=== PATIENT | female | born 1940 | race Caucasian/White ===

== ENCOUNTER 2020-12-31 10:01 | Inpatient (IN) | payer MEDICARE, OTHER ==
--- NOTE | 2020-12-31 10:50 | ED ---
SOB HPI - General Chief Complaint: Shortness of Breath Stated Complaint: BHUPINDER Time Seen by Provider: 12/31/20 10:05 Source: patient, EMS Mode of arrival: EMS Limitations: altered mental status - History of Present Illness Initial Comments: 80-year-old female with past medical history of lung cancer, colon cancer in remission presents to the emergency room with reported shortness of breath. Patient normally wears 2 L of oxygen at all times. States that over the past 3 days she has had increasing shortness of breath she has had a turn her oxygen up to 3 L. States that her pulse ox goes down to 70% when she indicates across a room. He denies any fevers or chills. No cough. She is vaccinated against Covid. Denies any sick contacts. No chest pain. No previous history of cardiac disease. Does report to some new onset lower extremity swelling. No history of heart failure. She has not been using her nebulizer at home she states he normally doesn't help her symptoms. No other alleviating, precipitating or modifying factors - Related Data Home Medications Medication Instructions Recorded Confirmed Albuterol Sulfate [Proair Hfa] 1 - 2 puff INHALATION RT-Q6H PRN 12/31/20 12/31/20 Ascorbic Acid [Vitamin C] 500 mg PO DAILY 12/31/20 12/31/20 Celecoxib [CeleBREX] 200 mg PO DIRECTED 12/31/20 12/31/20 Cholecalciferol [Vitamin D3 (25 25 mcg PO DAILY 12/31/20 12/31/20 Mcg = 1000 Iu)] Denosumab [Prolia] 60 mg SQ Q180D 12/31/20 12/31/20 Doxycycline Hyclate [Vibramycin] 100 mg PO BID 12/31/20 12/31/20 Fluticasone Nasal [place] [Flonase 1 spray EA NOSTRIL DAILY 12/31/20 12/31/20 Nasal [place]] Fluticasone/Umeclidin/Vilanter 1 puff INHALATION RT-DAILY 12/31/20 12/31/20 [Trelegy Ellipta 100-62.5-25] Furosemide [Lasix] 20 mg PO DAILY PRN 12/31/20 12/31/20 Ipratropium-Albuterol Nebulize 3 ml INHALATION RT-Q6H PRN 12/31/20 12/31/20 [Duoneb 0.5 mg-3 mg/3 ml Soln] Loratadine [Claritin] 10 mg PO DAILY PRN 12/31/20 12/31/20 Magnesium 250 mg PO DAILY 12/31/20 12/31/20 NIFEdipine [Procardia] 10 mg PO TID 12/31/20 12/31/20 Omeprazole 20 mg PO BID 12/31/20 12/31/20 Potassium 25meq 50 meq PO DAILY 12/31/20 12/31/20 Super B Complex 1 tab PO DAILY 12/31/20 12/31/20 Vit C/E/Zn/Coppr/Lutein/Zeaxan 1 cap PO BID 12/31/20 12/31/20 [Preservision Areds 2 Softgel] Zinc 50 mg PO DAILY 12/31/20 12/31/20 amLODIPine [Norvasc] 5 mg PO DAILY 12/31/20 12/31/20 predniSONE See Taper PO DAILY 12/31/20 12/31/20 Allergies Allergy/AdvReac Type Severity Reaction Status Date / Time No Known Allergies Allergy Verified 12/31/20 11:05 Review of Systems ROS Statement: Those systems with pertinent positive or pertinent negative responses have been documented in the HPI. ROS Other: All systems not noted in ROS Statement are negative. Past Medical History Past Medical History: Cancer, COPD, GERD/Reflux, Hypertension Additional Past Medical History / Comment(s): Colon CA History of Any Multi-Drug Resistant Organisms: None Reported Past Surgical History: Bowel Resection, Cholecystectomy Past Psychological History: No Psychological Hx Reported Smoking Status: Never smoker Past Alcohol Use History: None Reported Past Drug Use History: None Reported General Exam Limitations: altered mental status (poor historian) General appearance: alert, in no apparent distress Head exam: Present: atraumatic, normocephalic, normal inspection Eye exam: Present: normal appearance, PERRL, EOMI. Absent: scleral icterus, conjunctival injection, periorbital swelling ENT exam: Present: normal exam, mucous membranes moist Neck exam: Present: normal inspection. Absent: tenderness, meningismus, lymphadenopathy Respiratory exam: Present: normal lung sounds bilaterally. Absent: respiratory distress, wheezes, rales, rhonchi, stridor Cardiovascular Exam: Present: regular rate, normal rhythm, normal heart sounds. Absent: systolic murmur, diastolic murmur, rubs, gallop, clicks GI/Abdominal exam: Present: soft, normal bowel sounds. Absent: distended, tenderness, guarding, rebound, rigid Extremities exam: Present: normal inspection, full ROM, normal capillary refill. Absent: tenderness, pedal edema, joint swelling, calf tenderness Back exam: Present: normal inspection Neurological exam: Present: alert, oriented X3, CN II-XII intact Psychiatric exam: Present: normal affect, normal mood Skin exam: Present: warm, dry, intact, normal color. Absent: rash Course Vital Signs 12/31/20 12/31/20 12/31/20 10:04 10:41 12:52 Temperature 97.5 F L Pulse Rate 93 91 Pulse Rate [ Pulse Oximetery ] Respiratory 17 21 18 Rate Blood Pressure 154/69 143/64 Blood Pressure [Right Arm] O2 Sat by Pulse 98 98 Oximetry 12/31/20 14:00 Temperature 98.0 F Pulse Rate Pulse Rate [ 92 Pulse Oximetery ] Respiratory 16 Rate Blood Pressure Blood Pressure 145/82 [Right Arm] O2 Sat by Pulse 100 Oximetry Medical Decision Making - Medical Decision Making Upon arrival patient is placed into room 6. A thorough history and physical exam is performed. IV is established laboratory studies are conducted. Sodium is low at 122. Chloride 79. Chest x-ray demonstrates chronic parenchymal changes and a tiny pleural effusion. Patient looks grossly volume depleted except for mild lower extremity edema and therefore I did give her a 500 bolus of normal saline and placed her on 75 mL per hour due to her hyponatremia. Patient also given methylprednisolone, magnesium and DuoNeb breathing treatment for her COPD. I recommended admission in order to slowly hydrate the patient to improve her sodium level. Called and spoke with Dr. Arenas who agreed to admit the patient. I will also cover the patient with antibiotics. Patient remained in stable condition awaiting a bed - Lab Data Result diagrams: 01/06/21 04:15 01/06/21 04:15 Lab Results 12/31/20 12/31/20 12/31/20 Range/Units 10:42 10:42 10:42 WBC 9.9 (3.8-10.6) k/uL RBC 3.91 (3.80-5.40) m/uL Hgb 11.7 (11.4-16.0) gm/dL Hct 35.8 (34.0-46.0) % MCV 91.4 (80.0-100.0) fL MCH 29.8 (25.0-35.0) pg MCHC 32.6 (31.0-37.0) g/dL RDW 13.9 (11.5-15.5) % Plt Count 280 (150-450) k/uL MPV 6.7 Neutrophils % 77 % Lymphocytes % 11 % Monocytes % 9 % Eosinophils % 1 % Basophils % 0 % Neutrophils # 7.6 (1.3-7.7) k/uL Lymphocytes # 1.0 (1.0-4.8) k/uL Monocytes # 0.9 (0-1.0) k/uL Eosinophils # 0.1 (0-0.7) k/uL Basophils # 0.0 (0-0.2) k/uL PT 10.1 (9.0-12.0) sec INR 0.9 (<1.2) APTT 27.4 (22.0-30.0) sec Sodium 122 L (137-145) mmol/L Potassium 4.8 (3.5-5.1) mmol/L Chloride 79 L (98-107) mmol/L Carbon Dioxide 38 H (22-30) mmol/L Anion Gap 5 mmol/L BUN 13 (7-17) mg/dL Creatinine 0.36 L (0.52-1.04) mg/dL Est GFR (CKD-EPI)AfAm >90 (>60 ml/min/1.73 sqM) Est GFR (CKD-EPI)NonAf >90 (>60 ml/min/1.73 sqM) Glucose 113 H (74-99) mg/dL Osmolality (280-301) mosm/kg Plasma Lactic Acid Percy (0.7-2.0) mmol/L Calcium 9.4 (8.4-10.2) mg/dL Magnesium 1.7 (1.6-2.3) mg/dL Total Bilirubin 0.4 (0.2-1.3) mg/dL AST 37 H (14-36) U/L ALT 39 H (4-34) U/L Alkaline Phosphatase 87 (38-126) U/L Troponin I (0.000-0.034) ng/mL NT-Pro-B Natriuret Pep pg/mL Total Protein 6.7 (6.3-8.2) g/dL Albumin 3.8 (3.5-5.0) g/dL Urine Color Urine Appearance (Clear) Urine pH (5.0-8.0) Ur Specific Donald (1.001-1.035) Urine Protein (Negative) Urine Glucose (UA) (Negative) Urine Ketones (Negative) Urine Blood (Negative) Urine Nitrite (Negative) Urine Bilirubin (Negative) Urine Urobilinogen (<2.0) mg/dL Ur Leukocyte Esterase (Negative) Coronavirus (PCR) (Not Detectd) 12/31/20 12/31/20 12/31/20 Range/Units 10:42 10:42 10:42 WBC (3.8-10.6) k/uL RBC (3.80-5.40) m/uL Hgb (11.4-16.0) gm/dL Hct (34.0-46.0) % MCV (80.0-100.0) fL MCH (25.0-35.0) pg MCHC (31.0-37.0) g/dL RDW (11.5-15.5) % Plt Count (150-450) k/uL MPV Neutrophils % % Lymphocytes % % Monocytes % % Eosinophils % % Basophils % % Neutrophils # (1.3-7.7) k/uL Lymphocytes # (1.0-4.8) k/uL Monocytes # (0-1.0) k/uL Eosinophils # (0-0.7) k/uL Basophils # (0-0.2) k/uL PT (9.0-12.0) sec INR (<1.2) APTT (22.0-30.0) sec Sodium (137-145) mmol/L Potassium (3.5-5.1) mmol/L Chloride (98-107) mmol/L Carbon Dioxide (22-30) mmol/L Anion Gap mmol/L BUN (7-17) mg/dL Creatinine (0.52-1.04) mg/dL Est GFR (CKD-EPI)AfAm (>60 ml/min/1.73 sqM) Est GFR (CKD-EPI)NonAf (>60 ml/min/1.73 sqM) Glucose (74-99) mg/dL Osmolality (280-301) mosm/kg Plasma Lactic Acid Percy 0.7 (0.7-2.0) mmol/L Calcium (8.4-10.2) mg/dL Magnesium (1.6-2.3) mg/dL Total Bilirubin (0.2-1.3) mg/dL AST (14-36) U/L ALT (4-34) U/L Alkaline Phosphatase (38-126) U/L Troponin I <0.012 (0.000-0.034) ng/mL NT-Pro-B Natriuret Pep 441 pg/mL Total Protein (6.3-8.2) g/dL Albumin (3.5-5.0) g/dL Urine Color Urine Appearance (Clear) Urine pH (5.0-8.0) Ur Specific Donald (1.001-1.035) Urine Protein (Negative) Urine Glucose (UA) (Negative) Urine Ketones (Negative) Urine Blood (Negative) Urine Nitrite (Negative) Urine Bilirubin (Negative) Urine Urobilinogen (<2.0) mg/dL Ur Leukocyte Esterase (Negative) Coronavirus (PCR) (Not Detectd) 12/31/20 12/31/20 12/31/20 Range/Units 10:42 10:56 13:14 WBC (3.8-10.6) k/uL RBC (3.80-5.40) m/uL Hgb (11.4-16.0) gm/dL Hct (34.0-46.0) % MCV (80.0-100.0) fL MCH (25.0-35.0) pg MCHC (31.0-37.0) g/dL RDW (11.5-15.5) % Plt Count (150-450) k/uL MPV Neutrophils % % Lymphocytes % % Monocytes % % Eosinophils % % Basophils % % Neutrophils # (1.3-7.7) k/uL Lymphocytes # (1.0-4.8) k/uL Monocytes # (0-1.0) k/uL Eosinophils # (0-0.7) k/uL Basophils # (0-0.2) k/uL PT (9.0-12.0) sec INR (<1.2) APTT (22.0-30.0) sec Sodium (137-145) mmol/L Potassium (3.5-5.1) mmol/L Chloride (98-107) mmol/L Carbon Dioxide (22-30) mmol/L Anion Gap mmol/L BUN (7-17) mg/dL Creatinine (0.52-1.04) mg/dL Est GFR (CKD-EPI)AfAm (>60 ml/min/1.73 sqM) Est GFR (CKD-EPI)NonAf (>60 ml/min/1.73 sqM) Glucose (74-99) mg/dL Osmolality 261 L (280-301) mosm/kg Plasma Lactic Acid Percy (0.7-2.0) mmol/L Calcium (8.4-10.2) mg/dL Magnesium (1.6-2.3) mg/dL Total Bilirubin (0.2-1.3) mg/dL AST (14-36) U/L ALT (4-34) U/L Alkaline Phosphatase (38-126) U/L Troponin I (0.000-0.034) ng/mL NT-Pro-B Natriuret Pep pg/mL Total Protein (6.3-8.2) g/dL Albumin (3.5-5.0) g/dL Urine Color Yellow Urine Appearance Clear (Clear) Urine pH 5.5 (5.0-8.0) Ur Specific Donald 1.012 (1.001-1.035) Urine Protein Trace H (Negative) Urine Glucose (UA) Negative (Negative) Urine Ketones 1+ H (Negative) Urine Blood Negative (Negative) Urine Nitrite Negative (Negative) Urine Bilirubin Negative (Negative) Urine Urobilinogen <2.0 (<2.0) mg/dL Ur Leukocyte Esterase Negative (Negative) Coronavirus (PCR) Not Detected (Not Detectd) - EKG Data EKG Comments: EKG demonstrates a normal sinus rhythm with a ventricular rate of 90. W[place] interval 164. QRS 90. QTC of 396. No acute ST segment elevations or depressions concerning for ischemic changes Disposition Clinical Impression: Hyponatremia, COPD exacerbation Disposition: ADMITTED IP TO THIS HOSP Is patient prescribed a controlled substance at d/c from ED?: No Decision to Admit Reason: Admit from EC Decision Date: 12/31/20 Decision Time: 13:17
[2020-12-31 10:56] LABS: Basophils % (A) 0 %; Eosinophils # (A) 0.1 k/uL (0-0.7); Eosinophils % (A) 1 %; HCT 35.8 % (34.0-46.0); HGB 11.7 gm/dL (11.4-16.0); Lymphocytes % (A) 11 %; MCH 29.8 pg (25.0-35.0); MCHC 32.6 g/dL (31.0-37.0); MCV 91.4 fL (80.0-100.0); Mean Platelet Volume 6.7; Monocytes # (A) 0.9 k/uL (0-1.0); Monocytes % (A) 9 %; Neutrophils # (A) 7.6 k/uL (1.3-7.7); Neutrophils % (A) 77 %; Platelet Count 280 k/uL (150-450); RBC 3.91 m/uL (3.80-5.40); RDW 13.9 % (11.5-15.5); WBC 9.9 k/uL (3.8-10.6)
--- NOTE | 2020-12-31 11:01 | XR ---
EXAMINATION TYPE: XR chest 2V DATE OF EXAM: 12/31/2020 COMPARISON: NONE HISTORY: Difficulty in breathing. TECHNIQUE: Frontal and lateral views of the chest are obtained. FINDINGS: Suboptimal lateral view is suboptimal including entire posterior lung bases. I suspect smal l to tiny right pleural effusion. There are moderate chronic parenchymal changes bilaterally. The car diac silhouette size is within normal limits with atherosclerotic change aortic knob. The osseous s tructures are intact. IMPRESSION: Chronic parenchymal changes and small to tiny right pleural effusion.
[2020-12-31 11:06] LABS: INR 0.9 (<1.2); Partial Thromboplastin Time 27.4 sec (22.0-30.0); Prothrombin Time 10.1 sec (9.0-12.0)
[2020-12-31 11:16] LABS: ALT 39 U/L (4-34); AST 37 U/L (14-36); African American GFR (CKD) >90 (>60 ml/min/1.73 sqM); Albumin 3.8 g/dL (3.5-5.0); Alkaline Phosphatase 87 U/L (38-126); Anion Gap 5 mmol/L; Blood Urea Nitrogen 13 mg/dL (7-17); Calcium 9.4 mg/dL (8.4-10.2); Carbon Dioxide 38 mmol/L (22-30); Chloride 79 mmol/L (98-107); Glucose 113 mg/dL (74-99); Magnesium 1.7 mg/dL (1.6-2.3); Non-African American GFR(CKD) >90 (>60 ml/min/1.73 sqM); Potassium 4.8 mmol/L (3.5-5.1); Sodium 122 mmol/L (137-145); Total Bilirubin 0.4 mg/dL (0.2-1.3); Total Protein 6.7 g/dL (6.3-8.2)
[2020-12-31] MEDS ORDERED: IPRATROPIUM-ALBUTEROL 3 ML NEB INHALATION STA (13:13)
[2020-12-31] MEDS ORDERED: methylPREDNISolone SOD SUCCI 125 MG/2 ML VIAL IV STA (13:13)
[2020-12-31] MEDS ORDERED: MAGNESIUM SULFATE-D5W PMX 1 GM in DEXTROSE/WATER 1 100ML.BAG IVPB ONE (13:13)
[2020-12-31] MEDS ORDERED: SODIUM CHLORIDE 0.9% 500 ML 500 ML IV ONE (13:14)
[2020-12-31] MEDS ORDERED: NALOXONE 0.4 MG/ML 1 ML VIAL IV PRN (13:19)
[2020-12-31] MEDS: DOXYCYCLINE 100 MG CAP PO SCH ×2 (14:44→20:42)
[2020-12-31] MEDS: SODIUM CHLORIDE 0.9% 1,000 ML IV SCH (14:45)
[2020-12-31 15:05] LABS: Appearance,Urine Clear (Clear); Bilirubin,Urine Negative (Negative); Blood,Urine Negative (Negative); Color,Urine Yellow; Glucose,Urine (UA) Negative (Negative); Ketones,Urine 1+ (Negative); Leukocyte Esterase,Urine Negative (Negative); Nitrite,Urine Negative (Negative); PH, Urine 5.5 (5.0-8.0); Protein,Urine Trace (Negative); Specific Gravity,Urine 1.012 (1.001-1.035); Urobilinogen,Urine <2.0 mg/dL (<2.0)
[2020-12-31] MEDS ORDERED: IPRATROPIUM-ALBUTEROL 3 ML NEB INHALATION PRN (15:18)
[2020-12-31] MEDS ORDERED: LORATADINE 10 MG TAB PO PRN (15:18)
--- NOTE | 2020-12-31 15:28 | P.HPIM ---
History of Present Illness H&P Date: 12/31/20 This is a 80-year-old female with past medical history noted below significant for underlying COPD, history of lung cancer and colon cancer in remission, and chronic hypoxic respiratory failure on home O2 presented to the emergency room with worsening shortness of breath and confusion. Patient was seen by me in the ER. Her at bedside was helping with history. He told me that for the last few days patient is been getting more confused and occasionally talking about her mother who is . Patient herself reports feeling well. She reports some shortness of breath slightly worse than her usual. She is on 2 L of oxygen at home and occasionally has been using 3 L for the last few days. Patient was evaluated in the ER and lab work showed evidence of hyponatremia with sodium level of 122. Urinalysis and chest x-ray with no acute findings. Patient denies any nausea or vomiting. No diarrhea. No flulike symptoms. She is oriented to herself and to the place and the year but not the month. Review of Systems Review of system: 14 points review of systems were obtained and were negative except to what were mentioned in the HPI. Past Medical History Past Medical History: Cancer, COPD, GERD/Reflux, Hypertension Additional Past Medical History / Comment(s): Colon CA History of Any Multi-Drug Resistant Organisms: None Reported Past Surgical History: Bowel Resection, Cholecystectomy Past Psychological History: No Psychological Hx Reported Smoking Status: Never smoker Past Alcohol Use History: None Reported Past Drug Use History: None Reported Medications and Allergies Home Medications Medication Instructions Recorded Confirmed Type Albuterol Sulfate [Proair Hfa] 1 - 2 puff INHALATION RT-Q6H PRN 12/31/20 12/31/20 History Ascorbic Acid [Vitamin C] 500 mg PO DAILY 12/31/20 12/31/20 History Celecoxib [CeleBREX] 200 mg PO DIRECTED 12/31/20 12/31/20 History Cholecalciferol [Vitamin D3 (25 25 mcg PO DAILY 12/31/20 12/31/20 History Mcg = 1000 Iu)] Denosumab [Prolia] 60 mg SQ Q180D 12/31/20 12/31/20 History Doxycycline Hyclate [Vibramycin] 100 mg PO BID 12/31/20 12/31/20 History Fluticasone Nasal [place] [Flonase 1 spray EA NOSTRIL DAILY 12/31/20 12/31/20 History Nasal [place]] Fluticasone/Umeclidin/Vilanter 1 puff INHALATION RT-DAILY 12/31/20 12/31/20 History [Trelegy Ellipta 100-62.5-25] Furosemide [Lasix] 20 mg PO DAILY PRN 12/31/20 12/31/20 History Ipratropium-Albuterol Nebulize 3 ml INHALATION RT-Q6H PRN 12/31/20 12/31/20 History [Duoneb 0.5 mg-3 mg/3 ml Soln] Loratadine [Claritin] 10 mg PO DAILY PRN 12/31/20 12/31/20 History Magnesium 250 mg PO DAILY 12/31/20 12/31/20 History NIFEdipine [Procardia] 10 mg PO TID 12/31/20 12/31/20 History Omeprazole 20 mg PO BID 12/31/20 12/31/20 History Potassium 25meq 50 meq PO DAILY 12/31/20 12/31/20 History Super B Complex 1 tab PO DAILY 12/31/20 12/31/20 History Vit C/E/Zn/Coppr/Lutein/Zeaxan 1 cap PO BID 12/31/20 12/31/20 History [Preservision Areds 2 Softgel] Zinc 50 mg PO DAILY 12/31/20 12/31/20 History amLODIPine [Norvasc] 5 mg PO DAILY 12/31/20 12/31/20 History predniSONE See Taper PO DAILY 12/31/20 12/31/20 History Allergies Allergy/AdvReac Type Severity Reaction Status Date / Time No Known Allergies Allergy Verified 12/31/20 11:05 Physical Exam Vitals: Vital Signs Temp Pulse Resp BP Pulse Ox 12/31/20 12:52 91 18 143/64 98 12/31/20 10:41 21 12/31/20 10:04 97.5 F L 93 17 154/69 98 Intake and Output 12/31/20 12/31/20 12/31/20 06:59 14:59 22:59 Other: Weight 47.627 kg General: The patient is awake and alert, in no distress Eye: there is normal conjunctiva bilaterally. Neck: The neck is supple, there is no JVD. Cardiovascular: Normal S1-S2, no S3-S4, no murmurs. Respiratory: Lungs clear to auscultation bilaterally Gastrointestinal: Abdomen is soft, nontender Musculoskeletal: There is no pedal edema. Neurological:. Speech is normal. Skin: Skin is warm and dry Results CBC & Chem 7: 12/31/20 10:42 12/31/20 10:42 Labs: Abnormal Lab Results - Last 24 Hours (Table) 12/31/20 12/31/20 Range/Units 10:42 13:14 Sodium 122 L (137-145) mmol/L Chloride 79 L (98-107) mmol/L Carbon Dioxide 38 H (22-30) mmol/L Creatinine 0.36 L (0.52-1.04) mg/dL Glucose 113 H (74-99) mg/dL AST 37 H (14-36) U/L ALT 39 H (4-34) U/L Urine Protein Trace H (Negative) Urine Ketones 1+ H (Negative) Assessment and Plan Assessment: This is a 80-year-old female that presented to the emergency room with some shortness of breath and confusion. Patient was evaluated in the ER and will be admitted to the hospital for further management of her medical problems noted below. 1. Hypovolemic hyponatremia: Continue IV fluid hydration with normal saline at 75 mL per hour. Discontinue home dose of Lasix. On a sodium level every 6 hours. Avoid overcorrection. 2. Metabolic encephalopathy, mild. With some confusion reported by her . Probably secondary to above. We will continue to monitor closely. Urinalysis is negative. 3. Underlying COPD with no evidence of exacerbation. Continue bronchodilators and home dose of prednisone 10 mg daily 4. Chronic hypoxic respiratory failure on 2 L of oxygen at home 5. History of lung: Cancer in remission 6. Essential hypertension, blood pressure within acceptable range. Patient has both amlodipine and nifedipine on her home med rec. I would continue with amlodipine for now and discontinue nifedipine. 7. CODE STATUS, discussed with patient and her at bedside. Patient is full code. They're not sure about advanced directives to have at home and her will bring a copy.
[2020-12-31] MEDS: PANTOPRAZOLE 40 MG TABLET PO SCH (18:54)
[2020-12-31] MEDS ORDERED: diphenhydrAMINE 25 MG CAP PO ONE (22:06)
[2021-01-01] MEDS: SODIUM CHLORIDE 0.9% 1,000 ML IV SCH ×2 (06:20→16:14)
[2021-01-01] MEDS: ASCORBIC ACID 500 MG TAB PO SCH (07:53)
[2021-01-01] MEDS: CHOLECALCIFEROL 25 MCG (1000 IU) TABLET PO SCH (07:53)
[2021-01-01] MEDS: FLUTICASONE 50MCG/SPRAY NASAL 16GM EA NOSTRIL SCH (07:53)
[2021-01-01] MEDS: PANTOPRAZOLE 40 MG TABLET PO SCH ×2 (07:53→16:12)
[2021-01-01] MEDS: predniSONE 10 MG TAB PO SCH (07:54)
[2021-01-01] MEDS: amLODIPine 5 MG TAB PO SCH (07:54)
[2021-01-01] MEDS: DOXYCYCLINE 100 MG CAP PO SCH ×2 (08:05→21:11)
[2021-01-01] MEDS: IPRATROPIUM-ALBUTEROL 3 ML NEB INHALATION PRN ×2 (08:13→19:35)
[2021-01-01] MEDS: SYMBICORT 80-4.5 MCG INHALER INHALATION SCH ×2 (08:13→19:35)
[2021-01-01 08:33] LABS: African American GFR (CKD) >90 (>60 ml/min/1.73 sqM); Anion Gap 2 mmol/L; Blood Urea Nitrogen 11 mg/dL (7-17); Calcium 8.6 mg/dL (8.4-10.2); Carbon Dioxide 39 mmol/L (22-30); Chloride 85 mmol/L (98-107); Glucose 113 mg/dL (74-99); Non-African American GFR(CKD) >90 (>60 ml/min/1.73 sqM); Potassium 5.3 mmol/L (3.5-5.1); Sodium 126 mmol/L (137-145)
[2021-01-01] MEDS ORDERED: NON FORMULARY DRUG (Magnesium [Magnesium] 250 MG Tablet) PO SCH (09:00)
[2021-01-01 09:43] LABS: Basophils # (A) 0.05 X 10*3/uL (0.00-0.10); Basophils % (A) 0.6 %; Eosinophils # (A) 0.01 X 10*3/uL (0.04-0.35); Eosinophils % (A) 0.1 %; HCT 34.3 % (37.2-46.3); HGB 10.2 g/dL (12.0-15.0); Lymphocytes # (A) 0.92 X 10*3/uL (0.90-5.00); Lymphocytes % (A) 10.7 %; MCH 28.2 pg (27.0-32.0); MCHC 29.7 g/dL (32.0-37.0); MCV 94.8 fL (80.0-97.0); Mean Platelet Volume 9.1 fL (9.5-12.2); Neutrophils # (A) 5.95 X 10*3/uL (1.80-7.70); Neutrophils % (A) 69.6 %; Platelet Count 239 X 10*3/uL (140-440); RBC 3.62 X 10*6/uL (4.10-5.20); RDW 13.3 % (11.5-14.5); WBC 8.56 X 10*3/uL (4.50-10.00)
--- NOTE | 2021-01-01 10:00 | P.PN ---
Subjective Patient is feeling well today. She admitted that her appetite is not that great. No acute events overnight. Sodium level improved to 126. Objective - Vital Signs Vital signs: Vital Signs Temp 97.6 F 01/01/21 08:00 Pulse 90 01/01/21 08:24 Resp 16 01/01/21 08:00 BP 116/59 01/01/21 08:00 Pulse Ox 98 01/01/21 08:00 Intake & Output 12/31/20 01/01/21 01/01/21 18:59 06:59 18:59 Intake Total 236 Balance 236 Weight 47.627 kg Intake: Oral 236 Other: Voiding Method Bedside Commode Bedside Commode # Voids 4 - Exam General: The patient is awake and alert, in no distress Eye: there is normal conjunctiva bilaterally. Neck: The neck is supple, there is no JVD. Cardiovascular: Normal S1-S2, no S3-S4, no murmurs. Respiratory: Lungs clear to auscultation bilaterally Gastrointestinal: Abdomen is soft, nontender Musculoskeletal: There is no pedal edema. Neurological:. Speech is normal. Skin: Skin is warm and dry - Labs CBC & Chem 7: 01/01/21 05:36 01/01/21 05:36 Labs: Abnormal Lab Results - Last 24 Hours (Table) 12/31/20 12/31/20 12/31/20 Range/Units 10:42 10:42 13:14 RBC (4.10-5.20) X 10*6/uL Hgb (12.0-15.0) g/dL Hct (37.2-46.3) % MCHC (32.0-37.0) g/dL MPV (9.5-12.2) fL Immature Gran # (0.00-0.04) X 10*3/uL Monocytes # (0.20-1.00) X 10*3/uL Eosinophils # (0.04-0.35) X 10*3/uL Sodium 122 L (137-145) mmol/L Potassium (3.5-5.1) mmol/L Chloride 79 L (98-107) mmol/L Carbon Dioxide 38 H (22-30) mmol/L Creatinine 0.36 L (0.52-1.04) mg/dL Glucose 113 H (74-99) mg/dL Osmolality 261 L (280-301) mosm/kg AST 37 H (14-36) U/L ALT 39 H (4-34) U/L Urine Protein Trace H (Negative) Urine Ketones 1+ H (Negative) 01/01/21 01/01/21 Range/Units 05:36 05:36 RBC 3.62 L (4.10-5.20) X 10*6/uL Hgb 10.2 L (12.0-15.0) g/dL Hct 34.3 L (37.2-46.3) % MCHC 29.7 L (32.0-37.0) g/dL MPV 9.1 L (9.5-12.2) fL Immature Gran # 0.43 H (0.00-0.04) X 10*3/uL Monocytes # 1.20 H (0.20-1.00) X 10*3/uL Eosinophils # 0.01 L (0.04-0.35) X 10*3/uL Sodium 126 L (137-145) mmol/L Potassium 5.3 H (3.5-5.1) mmol/L Chloride 85 L (98-107) mmol/L Carbon Dioxide 39 H (22-30) mmol/L Creatinine 0.41 L (0.52-1.04) mg/dL Glucose 113 H (74-99) mg/dL Osmolality (280-301) mosm/kg AST (14-36) U/L ALT (4-34) U/L Urine Protein (Negative) Urine Ketones (Negative) Assessment and Plan Assessment: This is a 80-year-old female that presented to the emergency room with some shortness of breath and confusion. Patient was evaluated in the ER and will be admitted to the hospital for further management of her medical problems noted below. 1. Hypovolemic hyponatremia: Continue IV fluid hydration with normal saline at 75 mL per hour. Discontinued home dose of Lasix. Avoid overcorrection. 2. Metabolic encephalopathy, mild. With some confusion reported by her . Probably secondary to above. We will continue to monitor closely. Urinalysis is negative. 3. Underlying COPD with no evidence of exacerbation. Continue bronchodilators and home dose of prednisone 10 mg daily 4. Chronic hypoxic respiratory failure on 2 L of oxygen at home 5. History of lung: Cancer in remission 6. Essential hypertension, blood pressure within acceptable range. Patient has both amlodipine and nifedipine on her home med rec. I would continue with amlodipine for now and discontinue nifedipine. 7. CODE STATUS, discussed with patient and her at bedside. Patient is full code. They're not sure about advanced directives to have at home and her will bring a copy.
[2021-01-01] MEDS ORDERED: CELECOXIB 200 MG PO SCH (11:00)
[2021-01-01] MEDS: VIT A,C & E-LUTEIN-MINERALS 1 EACH TAB PO SCH ×2 (11:30→21:11)
[2021-01-01] MEDS: ZINC SULFATE 220 MG CAP PO SCH (11:30)
[2021-01-01] MEDS ORDERED: ONDANSETRON 4 MG/2 ML VIAL IVP PRN (12:26)
[2021-01-01 16:33] LABS: African American GFR (CKD) >90 (>60 ml/min/1.73 sqM); Anion Gap 5 mmol/L; Blood Urea Nitrogen 15 mg/dL (7-17); Calcium 8.7 mg/dL (8.4-10.2); Carbon Dioxide 36 mmol/L (22-30); Chloride 84 mmol/L (98-107); Glucose 124 mg/dL (74-99); Non-African American GFR(CKD) >90 (>60 ml/min/1.73 sqM); Sodium 125 mmol/L (137-145)
[2021-01-02] MEDS: SODIUM CHLORIDE 0.9% 1,000 ML IV SCH ×4 (05:25→22:41)
[2021-01-02] MEDS: SYMBICORT 80-4.5 MCG INHALER INHALATION SCH ×2 (07:44→20:05)
[2021-01-02] MEDS: DOXYCYCLINE 100 MG CAP PO SCH ×3 (07:53→21:43)
[2021-01-02] MEDS: PANTOPRAZOLE 40 MG TABLET PO SCH ×3 (07:53→16:34)
[2021-01-02] MEDS: CHOLECALCIFEROL 25 MCG (1000 IU) TABLET PO SCH ×2 (07:53→12:21)
[2021-01-02] MEDS: amLODIPine 5 MG TAB PO SCH ×2 (07:53→12:21)
[2021-01-02] MEDS: ASCORBIC ACID 500 MG TAB PO SCH ×2 (07:53→12:21)
[2021-01-02] MEDS: ZINC SULFATE 220 MG CAP PO SCH ×2 (07:53→12:21)
[2021-01-02] MEDS: predniSONE 10 MG TAB PO SCH (07:53)
[2021-01-02] MEDS: VIT A,C & E-LUTEIN-MINERALS 1 EACH TAB PO SCH ×3 (07:53→21:43)
[2021-01-02] MEDS: FLUTICASONE 50MCG/SPRAY NASAL 16GM EA NOSTRIL SCH (07:54)
[2021-01-02 10:01] LABS: African American GFR (CKD) >90 (>60 ml/min/1.73 sqM); Anion Gap 4 mmol/L; Blood Urea Nitrogen 17 mg/dL (7-17); Calcium 9.8 mg/dL (8.4-10.2); Carbon Dioxide 36 mmol/L (22-30); Chloride 89 mmol/L (98-107); Glucose 131 mg/dL (74-99); Non-African American GFR(CKD) >90 (>60 ml/min/1.73 sqM); Sodium 129 mmol/L (137-145)
[2021-01-02 11:29] LABS: Glucose,Whole Blood 116 mg/dL (75-99)
--- NOTE | 2021-01-02 12:16 | P.PN ---
Subjective Patient is lethargic today. She eventually woke up after significant stimulation and was oriented to herself and to the place. She was dozing off and going back to sleep sewn after. This is a significant change in her mentation compared to yesterday. Nursing staff are not sure whether patient had good quality sleep last night or if she was awake during the night. Her at bedside Objective - Vital Signs Vital signs: Vital Signs Temp 96.2 F L 01/02/21 06:47 Pulse 88 01/02/21 06:47 Resp 20 01/02/21 02:00 BP 128/55 01/02/21 06:47 Pulse Ox 98 01/02/21 06:47 Intake & Output 01/01/21 01/02/21 01/02/21 18:59 06:59 18:59 Intake Total 708 Balance 708 Weight 47.627 kg Intake: Oral 708 Other: Voiding Method Bedside Commode Bedside Commode # Voids 2 1 - Exam General: The patient is awake and alert, in no distress Eye: there is normal conjunctiva bilaterally. Neck: The neck is supple, there is no JVD. Cardiovascular: Normal S1-S2, no S3-S4, no murmurs. Respiratory: Lungs clear to auscultation bilaterally Gastrointestinal: Abdomen is soft, nontender Musculoskeletal: There is no pedal edema. Neurological:. Speech is normal. Skin: Skin is warm and dry - Labs CBC & Chem 7: 01/01/21 05:36 01/02/21 08:40 Labs: Abnormal Lab Results - Last 24 Hours (Table) 01/01/21 01/02/21 01/02/21 Range/Units 15:39 08:40 11:28 Sodium 125 L 129 L (137-145) mmol/L Chloride 84 L 89 L (98-107) mmol/L Carbon Dioxide 36 H 36 H (22-30) mmol/L Creatinine 0.35 L 0.45 L (0.52-1.04) mg/dL Glucose 124 H 131 H (74-99) mg/dL POC Glucose (mg/dL) 116 H (75-99) mg/dL Assessment and Plan Assessment: This is a 80-year-old female that presented to the emergency room with some shortness of breath and confusion. Patient was evaluated in the ER and will be admitted to the hospital for further management of her medical problems noted below. 1. Hypovolemic hyponatremia: Improved with IV fluid hydration. Discontinued home dose of Lasix. Avoid overcorrection. 2. Metabolic encephalopathy, mild. With some confusion reported by her . Probably secondary to above. We will continue to monitor closely. Urinalysis is negative. I would obtain computed tomography scan of the head for further evaluation given worsening mentation today 3. Underlying COPD with no evidence of exacerbation. Continue bronchodilators and home dose of prednisone 10 mg daily 4. Chronic hypoxic respiratory failure on 2 L of oxygen at home 5. History of lung: Cancer in remission 6. Essential hypertension, blood pressure within acceptable range. Patient has both amlodipine and nifedipine on her home med rec. I would continue with amlodipine for now and discontinue nifedipine. 7. CODE STATUS, discussed with patient and her at bedside. Patient is full code. They're not sure about advanced directives to have at home and her will bring a copy.
--- NOTE | 2021-01-02 12:35 | CT ---
EXAMINATION TYPE: CT brain wo con DATE OF EXAM: 01/02/2021 COMPARISON: None HISTORY: Decreased LOC, altered mental status CT DLP: 1080.4 mGycm Automated exposure control for dose reduction was used. Helical imaging through the brain FINDINGS: Calvarium is intact. Paranasal sinuses and mastoid air cells are well aerated. There is cortical atro phy which is likely age-related. No hemorrhage or hydrocephalus. There are cerebral vascular calcific ations. Periventricular white matter shows patchy low attenuation. IMPRESSION: AGE-RELATED CHANGES OF ATROPHY AND CHRONIC SMALL VESSEL ISCHEMIA.
[2021-01-02 14:45] LABS: ABG PO2 266 mmHg (83-108); Allen Test Performed? Yes
[2021-01-02 14:49] LABS: ABG PCO2 >120 mmHg (35-45); ABG PH 7.03 (7.35-7.45)
[2021-01-02] MEDS ORDERED: LORazepam 2 MG/ML INJ IV STA (15:55)
[2021-01-02] MEDS: IPRATROPIUM-ALBUTEROL 3 ML NEB INHALATION SCH ×2 (18:19→20:05)
[2021-01-02 18:31] LABS: ABG Base Excess 11.1 mmol/L; ABG HCO3 39 mmol/L (21-25); ABG Oxygen Saturation 93.9 % (94-97); ABG PO2 66 mmHg (83-108); ABG TCO2 42 mmol/L (19-24); Allen Test Performed? Yes
[2021-01-02 18:35] LABS: ABG PCO2 102 mmHg (35-45)
[2021-01-02 19:53] LABS: Glucose,Whole Blood 103 mg/dL (75-99)
[2021-01-02] MEDS ORDERED: NALOXONE 0.4 MG/ML 1 ML VIAL IV PRN (20:59)
--- NOTE | 2021-01-02 21:40 | XR ---
EXAMINATION TYPE: XR chest 1V DATE OF EXAM: 01/02/2021 COMPARISON: 12/31/2020 HISTORY: Congestion TECHNIQUE: FINDINGS: Heart is normal. There is some patchy infiltrate at both lung bases. There is some blunting of the costophrenic angles. Heart size is normal. There is no heart failure. There are emphysematous changes in both upper lobes. IMPRESSION: COPD. Mild basilar pulmonary infiltrates. No obvious heart failure. No change.
[2021-01-02 21:41] LABS: ABG Base Excess 10.2 mmol/L; ABG HCO3 38 mmol/L (21-25); ABG Oxygen Saturation 80.3 % (94-97); ABG PH 7.21 (7.35-7.45); ABG TCO2 41 mmol/L (19-24); Allen Test Performed? Yes
[2021-01-02 21:44] LABS: ABG PCO2 97 mmHg (35-45); ABG PO2 42 mmHg (83-108)
[2021-01-02 22:19] LABS: Appearance,Urine Clear (Clear); Bilirubin,Urine Negative (Negative); Blood,Urine Negative (Negative); Color,Urine Yellow; Glucose,Urine (UA) Negative (Negative); Ketones,Urine Negative (Negative); Leukocyte Esterase,Urine Negative (Negative); Nitrite,Urine Negative (Negative); PH, Urine 5.5 (5.0-8.0); Protein,Urine Trace (Negative); Specific Gravity,Urine 1.012 (1.001-1.035); Urobilinogen,Urine <2.0 mg/dL (<2.0)
[2021-01-03] MEDS: SODIUM CHLORIDE 0.9% 1,000 ML IV SCH ×4 (00:24→20:56)
[2021-01-03] MEDS: DEXMEDETOMIDINE/0.9% NACL(PMX) 400 MCG in EMPTY BAG 1 BAG IV SCH ×2 (01:19→06:27)
[2021-01-03] MEDS ORDERED: SODIUM CHLORIDE 0.9% 1,000 ML IV ONE (02:42)
[2021-01-03] MEDS: NOREPINEPHRINE 4 MG in SODIUM CHLORIDE 0.9% 250 ML IV SCH ×2 (03:26→18:01)
[2021-01-03 04:30] LABS: African American GFR (CKD) >90 (>60 ml/min/1.73 sqM); Anion Gap 2 mmol/L; Blood Urea Nitrogen 20 mg/dL (7-17); Carbon Dioxide 32 mmol/L (22-30); Chloride 98 mmol/L (98-107); Glucose 88 mg/dL (74-99); Non-African American GFR(CKD) >90 (>60 ml/min/1.73 sqM); Sodium 132 mmol/L (137-145)
[2021-01-03 04:33] LABS: Calcium 8.7 mg/dL (8.4-10.2); Magnesium 1.8 mg/dL (1.6-2.3); Phosphorus 2.4 mg/dL (2.5-4.5); Potassium 5.1 mmol/L (3.5-5.1)
[2021-01-03 04:45] LABS: HCT 33.5 % (34.0-46.0); Hypochromasia Marked; MCH 28.4 pg (25.0-35.0); MCHC 28.9 g/dL (31.0-37.0); Platelet Count 206 k/uL (150-450); RBC 3.41 m/uL (3.80-5.40); RDW 13.9 % (11.5-15.5)
[2021-01-03 04:48] LABS: HGB 9.7 gm/dL (11.4-16.0); MCV 98.3 fL (80.0-100.0)
[2021-01-03] MEDS: MAGNESIUM SULFATE-D5W PMX 1 GM in DEXTROSE/WATER 1 100ML.BAG IVPB SCH ×2 (04:50→05:44)
[2021-01-03 05:28] LABS: Band Neutrophils % 17 %; Metamyelocytes # (M) 0.12 k/uL (0); Metamyelocytes % 1 %; Myelocytes # (M) 0.12 k/uL (0); Myelocytes % 1 %; Neutrophils % (M) 67 %; Nucleated Red Blood Cells 0 /100 WBC (0-0); Total Cells Counted 200
[2021-01-03 06:02] LABS: ABG Base Excess 8.9 mmol/L; ABG HCO3 36 mmol/L (21-25); ABG Oxygen Saturation 94.3 % (94-97); ABG PH 7.24 (7.35-7.45); ABG PO2 65 mmHg (83-108); ABG TCO2 39 mmol/L (19-24); Allen Test Performed? Yes
[2021-01-03 06:05] LABS: ABG PCO2 85 mmHg (35-45)
[2021-01-03] MEDS: PANTOPRAZOLE 40 MG TABLET PO SCH (06:37)
[2021-01-03] MEDS: SYMBICORT 80-4.5 MCG INHALER INHALATION SCH ×2 (07:03→18:57)
[2021-01-03] MEDS: IPRATROPIUM-ALBUTEROL 3 ML NEB INHALATION SCH ×4 (07:03→18:58)
[2021-01-03] MEDS: amLODIPine 5 MG TAB PO SCH (08:00)
[2021-01-03] MEDS: DOXYCYCLINE 100 MG CAP PO SCH (08:00)
[2021-01-03] MEDS: ASCORBIC ACID 500 MG TAB PO SCH (08:00)
[2021-01-03] MEDS: VIT A,C & E-LUTEIN-MINERALS 1 EACH TAB PO SCH ×2 (08:00→20:55)
[2021-01-03] MEDS: CHOLECALCIFEROL 25 MCG (1000 IU) TABLET PO SCH (08:00)
[2021-01-03] MEDS: ZINC SULFATE 220 MG CAP PO SCH (08:00)
[2021-01-03] MEDS: predniSONE 10 MG TAB PO SCH (08:00)
[2021-01-03] MEDS: FLUTICASONE 50MCG/SPRAY NASAL 16GM EA NOSTRIL SCH (08:20)
[2021-01-03] MEDS ORDERED: propofoL 100 ML IV ONE (11:01)
[2021-01-03 11:02] LABS: Glucose,Whole Blood 128 mg/dL (75-99)
[2021-01-03] MEDS ORDERED: CHLORHEXIDINE GLUCONATE 15 ML CUP MUCOUS MEM ONE (11:24)
--- NOTE | 2021-01-03 11:44 | XR ---
EXAMINATION TYPE: XR chest 1V portable DATE OF EXAM: 01/03/2021 COMPARISON: Chest x-ray dated 01/02/2021 HISTORY: Intubation TECHNIQUE: Single frontal view of the chest is obtained. FINDINGS: There has been interval placement of an endotracheal tube, NG tube which are overlying niraj ropriate positions. Patient is rotated, there are overlying leads. Emphysematous changes are likely w ithin the lungs, there is lucency in the upper lobes. Patchy density is present at the lung bases. Le ft costophrenic angle not entirely included on exam. Heart is small. Aorta is dense. IMPRESSION: No evident complication status post intubation, correlate for pneumonia
[2021-01-03 12:09] LABS: ABG HCO3 34 mmol/L (21-25); ABG PH 7.27 (7.35-7.45); ABG PO2 334 mmHg (83-108); ABG TCO2 36 mmol/L (19-24)
[2021-01-03] MEDS: ENOXAPARIN 40 MG/0.4 ML SYRINGE SQ SCH (12:51)
[2021-01-03] MEDS: methylPREDNISolone SOD SUCCI 40 MG/ML 1 ML VIAL IV SCH ×2 (12:51→18:01)
[2021-01-03] MEDS: LEVOFLOXACIN 500MG-D5W PMX 500 MG in DEXTROSE/WATER 1 100ML.BAG IVPB SCH (12:51)
[2021-01-03 13:04] LABS: ABG PCO2 74 mmHg (35-45); Allen Test Performed? no
--- NOTE | 2021-01-03 13:17 | P.PN ---
Subjective Progress Note Date: 01/03/21 Patient's overall condition continued to deteriorate yesterday afternoon and her mentation was not improving subsequently her arterial blood gas showed evidence of acute hypercapnic respiratory failure with respiratory acidosis. Patient was started on BiPAP with improvement in her serial ABGs. She was transferred to the intensive care unit for close monitoring. This morning, patient became unresponsive and was NT area rest. She received 1 round of CPR and one dose of IV epinephrine with successful return of spontaneous circulation. Patient was subsequently intubated and started on mechanical ventilation. Then had a prolonged discussion with her in the waiting room regarding her current critical condition and course of care. He agreed to continue supportive care and treatment at this point but would like to change her CODE STATUS to DO NOT RESUSCITATE going forward. Case was discussed with nursing staff. Objective - Vital Signs Vital signs: Vital Signs Temp 96.5 F L 01/03/21 12:00 Pulse 105 H 01/03/21 13:00 Resp 32 H 01/03/21 13:00 BP 134/53 01/03/21 13:00 Pulse Ox 92 L 01/03/21 13:00 Intake & Output 01/02/21 01/03/21 01/03/21 18:59 06:59 18:59 Intake Total 2879.722 631.535 Output Total 440 245 Balance 2439.722 386.535 Weight 47.5 kg Intake: IV 450 Sodium Chloride 0.9% 1, 450 000 ml @ 75 mls/hr IV . [id number] [facility] Rx#:[id number] Intake, IV Titration 2879.722 181.535 Amount Dexmedetomidine/0.9% NaCl 39.176 74.220 (Pmx) 400 mcg In Empty Bag 1 bag @ 0.2 MCG/KG/HR 2.381 mls/hr IV .Q24H [facility] Rx#:[id number] Norepinephrine 4 mg In 15.546 17.210 Sodium Chloride 0.9% 250 ml @ 0.05 MCG/KG/MIN 9. 073 mls/hr IV .Q24H [facility] Rx#:[id number] Sodium Chloride 0.9% 1, 825 75 000 ml @ 75 mls/hr IV . [id number] [facility] Rx#:[id number] Sodium Chloride 0.9% 1, 1000 000 ml @ 999 mls/hr IV . Q1H1M [facility] Rx#:[id number] Sodium Chloride 0.9% 1, 1000 000 ml @ 999 mls/hr IV . Q1H1M [facility] Rx#:[id number] propofoL 1,000 mg In 15.105 Empty Bag 1 bag @ Titrate IV .Q0M [facility] Rx#: [id number] Output: Urine 440 245 Other: Voiding Method Indwelling Catheter Indwelling Catheter # Voids 1 0 ABP, PAP, CO, CI - Last Documented Arterial Blood Pressure 90/40 - Exam General: The patient is sedated and intubated Eye: there is normal conjunctiva bilaterally. Neck: The neck is supple, there is no JVD. Cardiovascular: Normal S1-S2, no S3-S4, no murmurs. Respiratory: Lungs diminished with mechanical ventilator sounds Gastrointestinal: Abdomen is soft, nontender Musculoskeletal: There is no pedal edema. Skin: Skin is warm and dry - Labs CBC & Chem 7: 01/03/21 03:48 01/03/21 03:48 Labs: Abnormal Lab Results - Last 24 Hours (Table) 01/02/21 01/02/21 01/02/21 Range/Units 14:41 18:27 19:51 WBC (3.8-10.6) k/uL RBC (3.80-5.40) m/uL Hgb (11.4-16.0) gm/dL Hct (34.0-46.0) % MCHC (31.0-37.0) g/dL Neutrophils # (Manual) (1.3-7.7) k/uL Metamyelocytes # (Man) (0) k/uL Myelocytes # (Manual) (0) k/uL ABG pH 7.03 L* 7.20 L (7.35-7.45) ABG pCO2 >120 H* 102 H* (35-45) mmHg ABG pO2 266 H 66 L (83-108) mmHg ABG HCO3 39 H (21-25) mmol/L ABG Total CO2 42 H (19-24) mmol/L ABG O2 Saturation 100.0 H 93.9 L (94-97) % Sodium (137-145) mmol/L Carbon Dioxide (22-30) mmol/L BUN (7-17) mg/dL Creatinine (0.52-1.04) mg/dL POC Glucose (mg/dL) 103 H (75-99) mg/dL Phosphorus (2.5-4.5) mg/dL Urine Protein (Negative) 01/02/21 01/02/21 01/03/21 Range/Units 21:31 22:00 03:48 WBC 12.0 H (3.8-10.6) k/uL RBC 3.41 L (3.80-5.40) m/uL Hgb 9.7 L D (11.4-16.0) gm/dL Hct 33.5 L (34.0-46.0) % MCHC 28.9 L (31.0-37.0) g/dL Neutrophils # (Manual) 10.00 H (1.3-7.7) k/uL Metamyelocytes # (Man) 0.12 H (0) k/uL Myelocytes # (Manual) 0.12 H (0) k/uL ABG pH 7.21 L (7.35-7.45) ABG pCO2 97 H* (35-45) mmHg ABG pO2 42 L* (83-108) mmHg ABG HCO3 38 H (21-25) mmol/L ABG Total CO2 41 H (19-24) mmol/L ABG O2 Saturation 80.3 L (94-97) % Sodium (137-145) mmol/L Carbon Dioxide (22-30) mmol/L BUN (7-17) mg/dL Creatinine (0.52-1.04) mg/dL POC Glucose (mg/dL) (75-99) mg/dL Phosphorus (2.5-4.5) mg/dL Urine Protein Trace H (Negative) 01/03/21 01/03/21 01/03/21 Range/Units 03:48 05:53 10:59 WBC (3.8-10.6) k/uL RBC (3.80-5.40) m/uL Hgb (11.4-16.0) gm/dL Hct (34.0-46.0) % MCHC (31.0-37.0) g/dL Neutrophils # (Manual) (1.3-7.7) k/uL Metamyelocytes # (Man) (0) k/uL Myelocytes # (Manual) (0) k/uL ABG pH 7.24 L (7.35-7.45) ABG pCO2 85 H* (35-45) mmHg ABG pO2 65 L (83-108) mmHg ABG HCO3 36 H (21-25) mmol/L ABG Total CO2 39 H (19-24) mmol/L ABG O2 Saturation (94-97) % Sodium 132 L (137-145) mmol/L Carbon Dioxide 32 H (22-30) mmol/L BUN 20 H (7-17) mg/dL Creatinine 0.40 L (0.52-1.04) mg/dL POC Glucose (mg/dL) 128 H (75-99) mg/dL Phosphorus 2.4 L (2.5-4.5) mg/dL Urine Protein (Negative) 01/03/21 Range/Units 12:06 WBC (3.8-10.6) k/uL RBC (3.80-5.40) m/uL Hgb (11.4-16.0) gm/dL Hct (34.0-46.0) % MCHC (31.0-37.0) g/dL Neutrophils # (Manual) (1.3-7.7) k/uL Metamyelocytes # (Man) (0) k/uL Myelocytes # (Manual) (0) k/uL ABG pH 7.27 L (7.35-7.45) ABG pCO2 74 H* (35-45) mmHg ABG pO2 334 H (83-108) mmHg ABG HCO3 34 H (21-25) mmol/L ABG Total CO2 36 H (19-24) mmol/L ABG O2 Saturation 100.0 H (94-97) % Sodium (137-145) mmol/L Carbon Dioxide (22-30) mmol/L BUN (7-17) mg/dL Creatinine (0.52-1.04) mg/dL POC Glucose (mg/dL) (75-99) mg/dL Phosphorus (2.5-4.5) mg/dL Urine Protein (Negative) Assessment and Plan Assessment: This is a 80-year-old female that presented to the emergency room with some shortness of breath and confusion. Patient was evaluated in the ER and will be admitted to the hospital for further management of her medical problems noted below. On 01/02 patient mentation was deteriorating and a blood gas showed evidence of acute respiratory failure with respiratory acidosis. Patient was started on BiPAP and transferred to the ICU. On 01/02 1 in the morning despite improvement in her serial blood gas patient had a PEA arrest requiring one round CPR and IV epinephrine with successful ROSC. She was intubated and started on mechanical ventilation. Below is a list of her medical problems at this during this hospitalization. 1. Acute hypercapnic respiratory failure with respiratory acidosis 2. PEA arrest 3. Underlying COPD/emphysema with suspected pneumonia on chest x-ray 4. Hypovolemic hyponatremia on presentation improved with IV fluid 5. Chronic hypoxic respiratory failure on 2 L of oxygen at home 6. History of lung cancer and colon cancer in remission 7. Essential hypertension 8. CODE STATUS, changed to DO NOT RESUSCITATE. Discussed by me with her on 01/03 Patient is currently sedated and intubated. Mechanical ventilator managed by ICU team Started on aquin day #1 I would obtain echocardiogram to assess cardiac structure Patient's reports negative recent cardiac stress test We will continue ICU care otherwise. Lovenox for DVT prophylaxis. IV Protonix for GI prophylaxis
--- NOTE | 2021-01-03 15:17 | OP ---
OPERATIVE REPORT OPERATIVE REPORT: Intubation. PREOPERATIVE DIAGNOSIS: Acute cardiac arrest. POSTOPERATIVE DIAGNOSIS: Acute cardiac arrest. ANESTHESIA USED: Patient was already on Precedex, and received propofol 100 mg prior. PROCEDURE DESCRIPTION: The patient was placed in a supine position. The tongue was depressed. Using a curved size 4 blade, vocal cords were visualized. A size 8.0 endotracheal tube was inserted with direct visualization of the vocal cords. Cuff was inflated. There was color change. Connected to mechanical ventilation. No evidence of any complications. X-ray postoperatively showed adequate placement of the endotracheal tube. Again, no complications. MMODL / IJN: [id number] /
--- NOTE | 2021-01-03 15:24 | OP ---
OPERATIVE REPORT OPERATIVE REPORT: Placement of a right femoral triple-lumen catheter. PREOPERATIVE DIAGNOSIS: Cardiac arrest. POSTOPERATIVE DIAGNOSIS: Cardiac arrest. ANESTHESIA USED: Two mL of 1% lidocaine. PROCEDURE DESCRIPTION: The right groin was prepared in a sterile fashion. Drapes were applied. The area was locally anesthetized with lidocaine. Then the right femoral vein was cannulated easily, a guidewire was placed, and a triple-lumen catheter was inserted over the guidewire. The guidewire was removed. Good blood flow was noted in the 3 different ports of the triple-lumen catheter. Line was secured using 3.0 silk sutures. No complications. MMODL / IJN: [id number] /
--- NOTE | 2021-01-03 15:24 | OP ---
OPERATIVE REPORT OPERATIVE REPORT: Placement of a right radial arterial line. PREOPERATIVE DIAGNOSIS: Cardiac arrest. POSTOPERATIVE DIAGNOSIS: Cardiac arrest. ANESTHESIA USED: None deployed. PROCEDURE DESCRIPTION: Right wrist was prepared in a sterile fashion. Drapes were applied. The right radial artery was palpated, cannulated, and a guidewire was placed. A Cook's catheter was inserted over the guidewire, and the guidewire was removed. Good blood flow and good waveform were noted. No complications. Line was secured using 3.0 silk sutures. MMODL / IJN: [id number] /
--- NOTE | 2021-01-03 15:41 | P.CNPUL ---
History of Present Illness Consult date: 01/03/21 Requesting physician: Cesilia Patel Reason for consult: COPD Chief complaint: Shortness of breath, mental status change. History of present illness: This is an 80-year-old female with history of multiple medical problems including severe COPD, chronic hypoxic respiratory failure, history of lung cancer and history of colon cancer supposedly both are in remission. Patient was admitted through the emergency room on 12/31/20, and apparently her complaint was shortness of breath and confusion according to the . And the patient has been talking about her mother who is . Patient is normally on oxygen at 2 L/m, upon admission the patient was noted to have profound hypoxia and hypercapnia. Her pCO2 was as high as 120. Late yesterday, I was made aware of this patient, recommended that the patient stays on BiPAP because of her hypercapnia, and later on she had a follow-up ABG which showed minimal improvement however the patient was getting more and more agitated. Patient was transferred to the ICU, and she was placed on BiPAP, she was also placed on Precedex. Overnight the patient did extremely well, and follow-up ABG showed significant improvement in her pCO2 and good improvement in her pH. However early this morning the patient developed a sudden episode of pulseless electrical activity, and she received CPR for almost 2 minutes. As I was walking into the ICU, I was notified about the patient being coded. Ran into the room, intubated the patient, and within a minute, there was return of spontaneous circulation, and there was evidence of adequate blood pressure. Patient was placed on propofol, repeat ABG shortly after intubation showed a pO2 of 334 pCO2 of 74 pH of 7.27. Hence the patient was placed on FiO2 of 40%, tidal volume of 300, rate of 20, and PEEP of 5. Patient was kept on propofol at 30 mcg/kg/m, Precedex was discontinued, she required small dose of norepinephrine at 0.08 mcg/kg/m. Went ahead and placed a right femoral triple-lumen catheter and a right radial arterial line were both done. The admitting physician discussed her CODE STATUS with her and the CODE STATUS was changed shortly after to DO NOT RESUSCITATE and the patient is not to be resuscitated if she addressed again. Antibiotics morales, patient is on Leva simran, she is also on Solu-Medrol, bronchodilators, and Lovenox. Review of Systems ROS unobtainable: due to endotracheal tube Past Medical History Past Medical History: Cancer, COPD, GERD/Reflux, Hypertension Additional Past Medical History / Comment(s): Colon CA History of Any Multi-Drug Resistant Organisms: None Reported Past Surgical History: Bowel Resection, Cholecystectomy Past Psychological History: No Psychological Hx Reported Smoking Status: Never smoker Past Alcohol Use History: None Reported Past Drug Use History: None Reported Medications and Allergies Home Medications Medication Instructions Recorded Confirmed Type Albuterol Sulfate [Proair Hfa] 1 - 2 puff INHALATION RT-Q6H PRN 12/31/20 12/31/20 History Ascorbic Acid [Vitamin C] 500 mg PO DAILY 12/31/20 12/31/20 History Celecoxib [CeleBREX] 200 mg PO DIRECTED 12/31/20 12/31/20 History Cholecalciferol [Vitamin D3 (25 25 mcg PO DAILY 12/31/20 12/31/20 History Mcg = 1000 Iu)] Denosumab [Prolia] 60 mg SQ Q180D 12/31/20 12/31/20 History Doxycycline Hyclate [Vibramycin] 100 mg PO BID 12/31/20 12/31/20 History Fluticasone Nasal [place] [Flonase 1 spray EA NOSTRIL DAILY 12/31/20 12/31/20 History Nasal [place]] Fluticasone/Umeclidin/Vilanter 1 puff INHALATION RT-DAILY 12/31/20 12/31/20 History [Trelegy Ellipta 100-62.5-25] Furosemide [Lasix] 20 mg PO DAILY PRN 12/31/20 12/31/20 History Ipratropium-Albuterol Nebulize 3 ml INHALATION RT-Q6H PRN 12/31/20 12/31/20 History [Duoneb 0.5 mg-3 mg/3 ml Soln] Loratadine [Claritin] 10 mg PO DAILY PRN 12/31/20 12/31/20 History Magnesium 250 mg PO DAILY 12/31/20 12/31/20 History NIFEdipine [Procardia] 10 mg PO TID 12/31/20 12/31/20 History Omeprazole 20 mg PO BID 12/31/20 12/31/20 History Potassium 25meq 50 meq PO DAILY 12/31/20 12/31/20 History Super B Complex 1 tab PO DAILY 12/31/20 12/31/20 History Vit C/E/Zn/Coppr/Lutein/Zeaxan 1 cap PO BID 12/31/20 12/31/20 History [Preservision Areds 2 Softgel] Zinc 50 mg PO DAILY 12/31/20 12/31/20 History amLODIPine [Norvasc] 5 mg PO DAILY 12/31/20 12/31/20 History predniSONE See Taper PO DAILY 12/31/20 12/31/20 History Allergies Allergy/AdvReac Type Severity Reaction Status Date / Time No Known Allergies Allergy Verified 12/31/20 11:05 Physical Exam Vitals: Vital Signs Temp Pulse Resp BP Pulse Ox 01/03/21 15:22 102 H 01/03/21 15:13 112 H 01/03/21 15:00 105 H 20 93 L 01/03/21 14:45 105 H 20 93 L 01/03/21 14:30 107 H 20 93 L 01/03/21 14:15 105 H 20 93 L 01/03/21 14:00 103 H 20 92 L 01/03/21 13:45 104 H 20 93 L 01/03/21 13:30 99 20 93 L 01/03/21 13:15 106 H 20 93 L 01/03/21 13:00 105 H 32 H 134/53 92 L 01/03/21 12:45 98 17 118/55 92 L 01/03/21 12:30 90 21 105/44 93 L 01/03/21 12:15 78 20 99 01/03/21 12:00 96.5 F L 76 20 131/53 99 01/03/21 11:45 75 20 115/63 99 01/03/21 11:30 96 20 180/89 99 01/03/21 11:15 105 H 20 179/102 100 01/03/21 11:00 144 H 12 126/54 86 L 01/03/21 10:52 62 01/03/21 10:45 68 13 133/54 100 01/03/21 10:41 66 01/03/21 10:30 69 13 91/69 98 01/03/21 10:15 73 26 H 93/41 92 L 01/03/21 10:00 65 13 102/43 99 01/03/21 09:45 69 12 114/54 99 01/03/21 09:30 66 14 113/50 99 01/03/21 09:15 69 13 112/59 99 01/03/21 09:00 79 24 111/50 96 01/03/21 08:45 68 12 100/47 99 01/03/21 08:30 71 15 95/49 99 01/03/21 08:15 68 20 95/40 94 L 01/03/21 08:00 96.5 F L 71 11 L 99/39 99 01/03/21 07:45 79 15 117/79 98 01/03/21 07:30 87 20 96/54 89 L 01/03/21 07:17 68 01/03/21 07:06 72 01/03/21 07:00 73 18 115/48 97 01/03/21 06:45 80 18 112/51 95 01/03/21 06:30 72 13 123/57 99 01/03/21 06:15 73 12 109/71 98 01/03/21 06:00 81 14 121/48 85 L 01/03/21 05:45 75 20 127/55 100 01/03/21 05:30 73 18 127/56 99 01/03/21 05:15 72 16 127/52 99 01/03/21 05:00 72 124/50 99 01/03/21 04:45 74 133/51 100 01/03/21 04:30 78 140/58 99 01/03/21 04:15 89 132/48 89 L 01/03/21 04:00 95.9 F L 87 21 112/56 86 L 01/03/21 03:45 88 20 76/41 90 L 01/03/21 03:30 71 14 82/45 99 01/03/21 03:15 78 14 94/46 95 01/03/21 03:00 75 13 86/47 98 01/03/21 02:45 70 14 76/36 99 01/03/21 02:30 71 14 74/36 99 01/03/21 02:15 76 15 87/45 99 01/03/21 02:00 82 16 116/48 97 01/03/21 01:45 86 25 H 129/61 97 01/03/21 01:30 96 28 H 116/62 85 L 01/03/21 01:15 92 12 105/52 94 L 01/03/21 01:00 88 20 125/75 89 L 01/03/21 00:45 30 H 111/54 90 L 01/03/21 00:30 85 22 118/53 93 L 01/03/21 00:15 92 29 H 124/47 85 L 01/03/21 00:00 95.1 F L 90 22 91/45 91 L 01/02/21 23:45 80 17 123/50 97 01/02/21 23:30 86 19 136/51 92 L 01/02/21 23:15 95 28 H 115/54 85 L 01/02/21 23:03 89 17 115/54 91 L 01/02/21 23:00 90 25 H 94/60 89 L 01/02/21 22:45 86 30 H 101/79 91 L 01/02/21 22:30 82 21 112/52 90 L 01/02/21 22:15 81 26 H 108/62 87 L 01/02/21 22:00 76 26 H 106/54 78 L 01/02/21 21:45 68 41 H 89/42 73 L 01/02/21 21:30 65 14 92/67 93 L 01/02/21 21:15 65 11 L 79/38 95 01/02/21 21:00 62 13 82/39 97 01/02/21 20:45 63 17 82/39 97 01/02/21 20:30 62 11 L 85/38 96 01/02/21 20:19 61 01/02/21 20:15 62 11 L 105/63 100 01/02/21 20:09 64 01/02/21 20:00 91.2 F L 69 24 106/67 77 L 01/02/21 19:53 18 Intake and Output 01/03/21 01/03/21 01/03/21 06:59 14:59 22:59 Intake Total 1729.722 750.539 111.48 Output Total 290 320 160 Balance 1439.722 430.539 -48.52 Intake: IV 525 75 Sodium Chloride 0.9% 1, 525 75 000 ml @ 75 mls/hr IV . [id number] [facility] Rx#:[id number] Intake, IV Titration 1729.722 225.539 36.48 Amount Dexmedetomidine/0.9% NaCl 39.176 74.220 (Pmx) 400 mcg In Empty Bag 1 bag @ 0.2 MCG/KG/HR 2.381 mls/hr IV .Q24H [facility] Rx#:[id number] Norepinephrine 4 mg In 15.546 61.214 Sodium Chloride 0.9% 250 ml @ 0.05 MCG/KG/MIN 9. 073 mls/hr IV .Q24H [facility] Rx#:[id number] Sodium Chloride 0.9% 1, 675 75 000 ml @ 75 mls/hr IV . [id number] [facility] Rx#:[id number] Sodium Chloride 0.9% 1, 1000 000 ml @ 999 mls/hr IV . Q1H1M [facility] Rx#:[id number] propofoL 1,000 mg In 15.105 36.48 Empty Bag 1 bag @ Titrate IV .Q0M [facility] Rx#: [id number] Output: Urine 290 320 160 Other: Voiding Method Indwelling Catheter Indwelling Catheter Weight 47.5 kg ABP, PAP, CO, CI - Last 8 Hours Arterial Blood Pressure 103/45 Arterial Blood Pressure 106/46 Arterial Blood Pressure 118/50 Arterial Blood Pressure 112/49 Arterial Blood Pressure 102/43 Arterial Blood Pressure 98/49 Arterial Blood Pressure 102/63 Arterial Blood Pressure 89/48 Arterial Blood Pressure 90/40 Arterial Blood Pressure 120/44 Arterial Blood Pressure 97/40 Arterial Blood Pressure 98/39 Arterial Blood Pressure 107/46 Arterial Blood Pressure 135/56 Arterial Blood Pressure 91/65 Physical Exam: Revealed 80-year-old female intubated, mechanically ventilated. Head: Atraumatic, normocephalic. HEENT:[Neck is supple.] [No neck masses.] [No thyromegaly.] [No JVD.] Endotracheal tube is intact orogastric tube is intact, very dry mucous membranes noted. Chest: [Symmetrical chest expansion, extremely diminished breath sound bilaterally. No rhonchi no wheezes. Cardiac Exam: Distant S1 and S2, no S3 gallop, 2/6 systolic murmur thought the precordium. Abdomen: [Soft, nontender, no megaly, no rebound, no guarding, normal bowel sounds.] Extremities: [No clubbing, no edema, no cyanosis.] Neurological Exam: Could not assess, patient is sedated, patient was just resuscitated from pulseless electrical activity. Psychiatric: Could not be assessed. Results - Laboratory Findings CBC and BMP: 01/03/21 03:48 01/03/21 03:48 ABG ABG pH 7.27 (7.35-7.45) L 01/03/21 12:06 ABG pCO2 74 mmHg (35-45) H* 01/03/21 12:06 ABG pO2 334 mmHg (83-108) H 01/03/21 12:06 ABG O2 Saturation 100.0 % (94-97) H 01/03/21 12:06 PT/INR, D-dimer PT 10.1 sec (9.0-12.0) 12/31/20 10:42 INR 0.9 (<1.2) 12/31/20 10:42 Abnormal lab findings: Abnormal Labs 12/31/20 12/31/20 12/31/20 10:42 10:42 13:14 WBC RBC Hgb Hct MCHC MPV Immature Gran # Neutrophils # (Manual) Monocytes # Eosinophils # Metamyelocytes # (Man) Myelocytes # (Manual) ABG pH ABG pCO2 ABG pO2 ABG HCO3 ABG Total CO2 ABG O2 Saturation Sodium 122 L Potassium Chloride 79 L Carbon Dioxide 38 H BUN Creatinine 0.36 L Glucose 113 H POC Glucose (mg/dL) Osmolality 261 L Phosphorus AST 37 H ALT 39 H Urine Protein Trace H Urine Ketones 1+ H 01/01/21 01/01/21 01/01/21 05:36 05:36 15:39 WBC RBC 3.62 L Hgb 10.2 L Hct 34.3 L MCHC 29.7 L MPV 9.1 L Immature Gran # 0.43 H Neutrophils # (Manual) Monocytes # 1.20 H Eosinophils # 0.01 L Metamyelocytes # (Man) Myelocytes # (Manual) ABG pH ABG pCO2 ABG pO2 ABG HCO3 ABG Total CO2 ABG O2 Saturation Sodium 126 L 125 L Potassium 5.3 H Chloride 85 L 84 L Carbon Dioxide 39 H 36 H BUN Creatinine 0.41 L 0.35 L Glucose 113 H 124 H POC Glucose (mg/dL) Osmolality Phosphorus AST ALT Urine Protein Urine Ketones 01/02/21 01/02/21 01/02/21 08:40 11:28 14:41 WBC RBC Hgb Hct MCHC MPV Immature Gran # Neutrophils # (Manual) Monocytes # Eosinophils # Metamyelocytes # (Man) Myelocytes # (Manual) ABG pH 7.03 L* ABG pCO2 >120 H* ABG pO2 266 H ABG HCO3 ABG Total CO2 ABG O2 Saturation 100.0 H Sodium 129 L Potassium Chloride 89 L Carbon Dioxide 36 H BUN Creatinine 0.45 L Glucose 131 H POC Glucose (mg/dL) 116 H Osmolality Phosphorus AST ALT Urine Protein Urine Ketones 01/02/21 01/02/21 01/02/21 18:27 19:51 21:31 WBC RBC Hgb Hct MCHC MPV Immature Gran # Neutrophils # (Manual) Monocytes # Eosinophils # Metamyelocytes # (Man) Myelocytes # (Manual) ABG pH 7.20 L 7.21 L ABG pCO2 102 H* 97 H* ABG pO2 66 L 42 L* ABG HCO3 39 H 38 H ABG Total CO2 42 H 41 H ABG O2 Saturation 93.9 L 80.3 L Sodium Potassium Chloride Carbon Dioxide BUN Creatinine Glucose POC Glucose (mg/dL) 103 H Osmolality Phosphorus AST ALT Urine Protein Urine Ketones 01/02/21 01/03/21 01/03/21 22:00 03:48 03:48 WBC 12.0 H RBC 3.41 L Hgb 9.7 L D Hct 33.5 L MCHC 28.9 L MPV Immature Gran # Neutrophils # (Manual) 10.00 H Monocytes # Eosinophils # Metamyelocytes # (Man) 0.12 H Myelocytes # (Manual) 0.12 H ABG pH ABG pCO2 ABG pO2 ABG HCO3 ABG Total CO2 ABG O2 Saturation Sodium 132 L Potassium Chloride Carbon Dioxide 32 H BUN 20 H Creatinine 0.40 L Glucose POC Glucose (mg/dL) Osmolality Phosphorus 2.4 L AST ALT Urine Protein Trace H Urine Ketones 01/03/21 01/03/21 01/03/21 05:53 10:59 12:06 WBC RBC Hgb Hct MCHC MPV Immature Gran # Neutrophils # (Manual) Monocytes # Eosinophils # Metamyelocytes # (Man) Myelocytes # (Manual) ABG pH 7.24 L 7.27 L ABG pCO2 85 H* 74 H* ABG pO2 65 L 334 H ABG HCO3 36 H 34 H ABG Total CO2 39 H 36 H ABG O2 Saturation 100.0 H Sodium Potassium Chloride Carbon Dioxide BUN Creatinine Glucose POC Glucose (mg/dL) 128 H Osmolality Phosphorus AST ALT Urine Protein Urine Ketones - Diagnostic Findings Chest x-ray: image reviewed (Chest x-ray post intubation showed adequate placement of the endotracheal tube, emphysematous changes, and suspect patchy density/pneumonia in the right lower lobe) Assessment and Plan Assessment: Impression: Acute on chronic hypoxic and hypercapnic respiratory failure secondary to acute exacerbation of COPD Acute community-acquired right lower lobe pneumonia is strongly suspected. Cardiac arrest/PEA requiring 2 minutes of CPR, one dose of epinephrine, intubation, mechanical ventilation, History of benign essential hypertension. History of colon cancer. History of lung cancer. Recommendation: Continue ventilatory support. Continue bronchodilators. Continue hemodynamic support. Nutritional support, start enteral feeding. Continue GI and DVT prophylaxis. Antibiotics and/Levaquin for acute right lower lobe pneumonia, community- acquired. Daily x-rays of the chest, Daily labs and monitoring of electrolytes and renal profile. We will continue to follow. Patient is critically ill. DO NOT RESUSCITATE CODE STATUS. As per 's wishes. Critical care time is over 15 minutes not including the time spent on procedures. Time with Patient: Greater than 30
[2021-01-03 17:30] LABS: Glucose,Whole Blood 136 mg/dL (75-99)
[2021-01-03] MEDS: INSULIN ASPART (NovoLOG) 100 UNIT/ML VIAL SQ SCH (18:01)
[2021-01-03] MEDS: CHLORHEXIDINE GLUCONATE 15 ML CUP MUCOUS MEM SCH (20:56)
[2021-01-04 00:05] LABS: Glucose,Whole Blood 112 mg/dL (75-99)
[2021-01-04] MEDS: methylPREDNISolone SOD SUCCI 40 MG/ML 1 ML VIAL IV SCH ×4 (00:05→18:12)
[2021-01-04] MEDS: SODIUM CHLORIDE 0.9% 1,000 ML IV SCH ×2 (01:16→11:49)
[2021-01-04] MEDS: INSULIN ASPART (NovoLOG) 100 UNIT/ML VIAL SQ SCH ×4 (01:17→17:28)
[2021-01-04] MEDS: NOREPINEPHRINE 4 MG in SODIUM CHLORIDE 0.9% 250 ML IV SCH (01:32)
[2021-01-04 04:17] LABS: Basophils # (A) 0.1 k/uL (0-0.2); Basophils % (A) 1 %; Eosinophils % (A) 0 %; HCT 33.7 % (34.0-46.0); Hypochromasia Marked; Lymphocytes # (A) 0.5 k/uL (1.0-4.8); Lymphocytes % (A) 4 %; MCH 28.9 pg (25.0-35.0); MCHC 29.7 g/dL (31.0-37.0); MCV 97.5 fL (80.0-100.0); Mean Platelet Volume 8.2; Monocytes # (A) 0.4 k/uL (0-1.0); Monocytes % (A) 3 %; Neutrophils # (A) 11.7 k/uL (1.3-7.7); Neutrophils % (A) 92 %; Platelet Count 181 k/uL (150-450); RBC 3.46 m/uL (3.80-5.40); WBC 12.8 k/uL (3.8-10.6)
[2021-01-04 04:28] LABS: Potassium 4.8 mmol/L (3.5-5.1)
[2021-01-04 04:31] LABS: African American GFR (CKD) >90 (>60 ml/min/1.73 sqM); Anion Gap 1 mmol/L; Blood Urea Nitrogen 14 mg/dL (7-17); Calcium 8.4 mg/dL (8.4-10.2); Carbon Dioxide 35 mmol/L (22-30); Chloride 98 mmol/L (98-107); Glucose 119 mg/dL (74-99); Magnesium 2.3 mg/dL (1.6-2.3); Non-African American GFR(CKD) >90 (>60 ml/min/1.73 sqM); Sodium 134 mmol/L (137-145)
[2021-01-04 05:31] LABS: Glucose,Whole Blood 101 mg/dL (75-99)
[2021-01-04 05:36] LABS: ABG Base Excess 12.3 mmol/L; ABG HCO3 38 mmol/L (21-25); ABG Oxygen Saturation 97.4 % (94-97); ABG PCO2 70 mmHg (35-45); ABG PH 7.35 (7.35-7.45); ABG PO2 83 mmHg (83-108); ABG TCO2 40 mmol/L (19-24); Allen Test Performed? Yes
[2021-01-04] MEDS: IPRATROPIUM-ALBUTEROL 3 ML NEB INHALATION SCH ×4 (07:09→19:31)
[2021-01-04] MEDS: ENOXAPARIN 40 MG/0.4 ML SYRINGE SQ SCH (08:00)
[2021-01-04] MEDS: CHLORHEXIDINE GLUCONATE 15 ML CUP MUCOUS MEM SCH ×2 (08:00→20:22)
[2021-01-04] MEDS: VIT A,C & E-LUTEIN-MINERALS 1 EACH TAB PO SCH ×2 (08:01→20:22)
[2021-01-04] MEDS: CHOLECALCIFEROL 25 MCG (1000 IU) TABLET PO SCH (08:01)
[2021-01-04] MEDS: amLODIPine 5 MG TAB PO SCH (08:01)
[2021-01-04] MEDS: ZINC SULFATE 220 MG CAP PO SCH (08:01)
[2021-01-04] MEDS: ASCORBIC ACID 500 MG TAB PO SCH (08:01)
[2021-01-04] MEDS: FLUTICASONE 50MCG/SPRAY NASAL 16GM EA NOSTRIL SCH (08:01)
[2021-01-04] MEDS: PANTOPRAZOLE 40 MG/10 ML VIAL IVP SCH (08:01)
--- NOTE | 2021-01-04 08:26 | XR ---
EXAMINATION TYPE: XR chest 1V portable DATE OF EXAM: 01/04/2021 Comparison: 01/03/2021 Clinical History: 80-year-old female Tube placement Findings: ET tube is satisfactory. NG tube courses below the diaphragm. Heart normal size. Atherosclerotic arch calcifications. Marked emphysematous change. Patchy right greater than left basilar opacities. Impression: COPD with patchy right greater than left basilar opacities persist. Correlate for infectious or aspir ation pneumonitis.
--- NOTE | 2021-01-04 10:38 | P.PN ---
Subjective Progress Note Date: 01/04/21 Principal diagnosis: Respiratory failure secondary to COPD. This is an 80-year-old female with history of multiple medical problems including severe COPD, chronic hypoxic respiratory failure, history of lung cancer and history of colon cancer supposedly both are in remission. Patient was admitted through the emergency room on 12/31/20, and apparently her complaint was shortness of breath and confusion according to the . And the patient has been talking about her mother who is . Patient is normally on oxygen at 2 L/m, upon admission the patient was noted to have profound hypoxia and hypercapnia. Her pCO2 was as high as 120. Late yesterday, I was made aware of this patient, recommended that the patient stays on BiPAP because of her hypercapnia, and later on she had a follow-up ABG which showed minimal improvement however the patient was getting more and more agitated. Patient was transferred to the ICU, and she was placed on BiPAP, she was also p laced on Precedex. Overnight the patient did extremely well, and follow-up ABG showed significant improvement in her pCO2 and good improvement in her pH. However early this morning the patient developed a sudden episode of pulseless electrical activity, and she received CPR for almost 2 minutes. As I was walking into the ICU, I was notified about the patient being coded. Ran into the room, intubated the patient, and within a minute, there was return of spontaneous circulation, and there was evidence of adequate blood pressure. Patient was placed on propofol, repeat ABG shortly after intubation showed a pO2 of 334 pCO2 of 74 pH of 7.27. Hence the patient was placed on FiO2 of 40%, tidal volume of 300, rate of 20, and PEEP of 5. Patient was kept on propofol at 30 mcg/kg/m, Precedex was discontinued, she required small dose of norepinephrine at 0.08 mcg/kg/m. Went ahead and placed a right femoral triple- lumen catheter and a right radial arterial line were both done. The admitting physician discussed her CODE STATUS with her and the CODE STATUS was changed shortly after to DO NOT RESUSCITATE and the patient is not to be resuscitated if she addressed again. Antibiotics morales, patient is on Levaquin, she is also on Solu-Medrol, bronchodilators, and Lovenox. Progress note dated 01/04/2021. This is an 80-year-old female seen by my partner yesterday in consultation. She was admitted to the hospital on December 31 with a COPD exacerbation. Unfortunately, on January 03, she has a episode of pulseless electrical activity (PEA), and required intubation on January 03. CPR lasted about 5 minutes. The patient is currently on the volume assist control mode rate of 20 tidal volume at 300, FiO2 40%, and PEEP of 5. Arterial blood gases show a PaO2 of 83 pCO2 70 and pH is 7.34. The patient is a chronic CO2 retainer. Her baseline PaCO2 is right around 60 mmHg. She's currently on saline at 75 mL an hour, propofol at 40 mcg/kg/m, norepinephrine which is on hold, and without 2 feeds. They will be started today. The patient will have a daily interruption of sedation and a spontaneous breathing trial today. She is a DO NOT RESUSCITATE. The patient is currently on Levaquin. I was just notified by the nurses, the patient did not do well with her spontaneous breathing trial, and her respiratory rate went up to 40-50 breaths per minute, the rapid shallow breathing index was 194, tidal volume was less than 200 mL, saturations were 88%, the patient was very agitated with a blood pressure 160/60. White count 12.8, hemoglobin 10, hematocrit 33.7, and platelet count 181,000. Sodium 134, potassium 4.8, chlorides 98, CO2 35, BUN 14, creatinine 0.4. Chest x-ray showed patchy bibasilar infiltrates, right greater than left, suggesting the possibility of aspiration. Objective - Vital Signs Vital signs: Vital Signs Temp 98.6 F 01/04/21 08:00 Pulse 95 01/04/21 10:25 Resp 25 H 01/04/21 10:00 BP 107/45 01/04/21 09:00 Pulse Ox 94 L 01/04/21 10:00 Intake & Output 01/03/21 01/04/21 01/04/21 18:59 06:59 18:59 Intake Total 5063.480 8697.870 367.272 Output Total 955 1105 620 Balance 328.982 280.870 -252.728 Weight 54.6 kg 54.6 kg Intake: IV 912 858 312 Pressure bag 12 33 12 Sodium Chloride 0.9% 1, 900 825 300 000 ml @ 75 mls/hr IV . [id number] [facility] Rx#:[id number] Intake, IV Titration 371.982 527.870 55.272 Amount Dexmedetomidine/0.9% NaCl 74.220 (Pmx) 400 mcg In Empty Bag 1 bag @ 0.2 MCG/KG/HR 2.381 mls/hr IV .Q24H [facility] Rx#:[id number] Norepinephrine 4 mg In 171.177 280.297 1.875 Sodium Chloride 0.9% 250 ml @ 0.05 MCG/KG/MIN 9. 073 mls/hr IV .Q24H [facility] Rx#:[id number] Sodium Chloride 0.9% 1, 75 000 ml @ 75 mls/hr IV . [id number] [facility] Rx#:[id number] propofoL 1,000 mg In 51.585 247.573 53.397 Empty Bag 1 bag @ Titrate IV .Q0M [facility] Rx#: [id number] Output: Gastric Drainage 400 Urine 955 1105 220 Other: Voiding Method Indwelling Catheter Indwelling Catheter Indwelling Catheter ABP, PAP, CO, CI - Last Documented Arterial Blood Pressure 141/51 - Exam No acute distress, sedated, with an orally placed endotracheal tube and NG tube. HEENT examination is grossly unremarkable. Neck supple. Full range of motion. No adenopathy thyromegaly or neck vein distention. Cardiovascular examination reveals regular rhythm rate. S1-S2 normal. No S3 or S4. No discernible murmur noted. Heart sounds are distant. Heart rate 99 bpm. Lungs reveal coarse bilateral rhonchi and wheezes. No crackles. Breath sounds are equal bilaterally. Saturations are 94% on the ventilator. Abdomen soft without bowel sounds. No masses or tenderness appreciated. Extremities are intact. No cyanosis clubbing or edema. Skin is without rash or lesion. Neurologic examination cannot be adequately assessed as the patient's currently sedated on propofol. - Labs CBC & Chem 7: 01/04/21 04:00 01/04/21 04:00 Labs: Abnormal Lab Results - Last 24 Hours (Table) 01/03/21 01/03/21 01/03/21 Range/Units 10:59 12:06 17:28 WBC (3.8-10.6) k/uL RBC (3.80-5.40) m/uL Hgb (11.4-16.0) gm/dL Hct (34.0-46.0) % MCHC (31.0-37.0) g/dL Neutrophils # (1.3-7.7) k/uL Lymphocytes # (1.0-4.8) k/uL ABG pH 7.27 L (7.35-7.45) ABG pCO2 74 H* (35-45) mmHg ABG pO2 334 H (83-108) mmHg ABG HCO3 34 H (21-25) mmol/L ABG Total CO2 36 H (19-24) mmol/L ABG O2 Saturation 100.0 H (94-97) % Sodium (137-145) mmol/L Carbon Dioxide (22-30) mmol/L Creatinine (0.52-1.04) mg/dL Glucose (74-99) mg/dL POC Glucose (mg/dL) 128 H 136 H (75-99) mg/dL 01/04/21 01/04/21 01/04/21 Range/Units 00:03 04:00 04:00 WBC 12.8 H (3.8-10.6) k/uL RBC 3.46 L (3.80-5.40) m/uL Hgb 10.0 L (11.4-16.0) gm/dL Hct 33.7 L (34.0-46.0) % MCHC 29.7 L (31.0-37.0) g/dL Neutrophils # 11.7 H (1.3-7.7) k/uL Lymphocytes # 0.5 L (1.0-4.8) k/uL ABG pH (7.35-7.45) ABG pCO2 (35-45) mmHg ABG pO2 (83-108) mmHg ABG HCO3 (21-25) mmol/L ABG Total CO2 (19-24) mmol/L ABG O2 Saturation (94-97) % Sodium 134 L (137-145) mmol/L Carbon Dioxide 35 H (22-30) mmol/L Creatinine 0.40 L (0.52-1.04) mg/dL Glucose 119 H (74-99) mg/dL POC Glucose (mg/dL) 112 H (75-99) mg/dL 01/04/21 01/04/21 Range/Units 05:29 05:33 WBC (3.8-10.6) k/uL RBC (3.80-5.40) m/uL Hgb (11.4-16.0) gm/dL Hct (34.0-46.0) % MCHC (31.0-37.0) g/dL Neutrophils # (1.3-7.7) k/uL Lymphocytes # (1.0-4.8) k/uL ABG pH (7.35-7.45) ABG pCO2 70 H (35-45) mmHg ABG pO2 (83-108) mmHg ABG HCO3 38 H (21-25) mmol/L ABG Total CO2 40 H (19-24) mmol/L ABG O2 Saturation 97.4 H (94-97) % Sodium (137-145) mmol/L Carbon Dioxide (22-30) mmol/L Creatinine (0.52-1.04) mg/dL Glucose (74-99) mg/dL POC Glucose (mg/dL) 101 H (75-99) mg/dL Microbiology - Last 24 Hours (Table) 01/03/21 11:05 Gram Stain - Preliminary Sputum Sputum Culture - Preliminary Assessment and Plan Assessment: Acute on chronic hypoxemic and hypercapnic respiratory failure, secondary to COPD exacerbation, with intubation on January 03, after 5 minutes of cardiopulmonary resuscitation and eventual return of spontaneous circulation, secondary to PEA. Community-acquired pneumonia right lower lobe, versus aspiration. History of benign essential hypertension. History of colon cancer. History of lung cancer. Plan: Plan dated 01/04/2021. The patient was given a daily interruption of sedation and spontaneous breathing trial. I, she did very poorly. She had to be placed back on the ventilator and sedated. We will resume sedation, start tube feeds, and continue to follow the patient and make recommendations where appropriate. The patient is a DO NOT RESUSCITATE patient. We will continue GI and DVT prophylaxis. She remains on Levaquin for suspected pneumonia. Prognosis is poor. We will continue to follow make recommendations where appropriate. Time with Patient: Greater than 30
--- NOTE | 2021-01-04 10:58 | ECHOF ---
Referral Reason:PEA arrest MEASUREMENTS -------- HEIGHT: 162.6 cm WEIGHT: 54.4 kg BP: 136/38 RVIDd: 3.5 cm (< 3.3) IVSd: 1.0 cm (0.6 - 1.1) LVIDd: 3.3 cm (3.9 - 5.3) LVPWd: 1.0 cm (0.6 - 1.1) IVSs: 1.3 cm LVIDs: 2.3 cm LVPWs: 1.5 cm LA Diam: 2.7 cm (2.7 - 3.8) Ao Diam: 3.0 cm (2.0 - 3.7) AV Cusp: 1.7 cm (1.5 - 2.6) MV EXCURSION: 18.048 mm (> 18.000) MV EF SLOPE: 26 mm/s (70 - 150) EPSS: 0.5 cm MV E Evgeny: 0.77 m/s MV DecT: 307 ms MV A Evgeny: 0.97 m/s MV E/A Ratio: 0.80 RAP: 15.00 mmHg RVSP: 57.82 mmHg FINDINGS -------- Sinus rhythm. This was a technically adequate study. The left ventricular size is normal. Left ventricular wall thickness is normal. Overall left vent ricular systolic function is normal with, an EF between 60 - 65 %. The right ventricle is mildly enlarged. The left atrium is normal in size. The right atrium is normal in size. Interatrial and interventricular septum intact. There is mild aortic valve sclerosis. The mitral valve is normal. Mild tricuspid regurgitation present. There is severe pulmonary hypertension. The right ventricul ar systolic pressure, as measured by Doppler, is 57.82mmHg. There is no pulmonic regurgitation present. The aortic root size is normal. The inferior vena cava is dilated with no significant inspiratory collapse which is consistent estima emely right atrial pressure of >15 mmHg. There is no pericardial effusion. CONCLUSIONS -------- 1. The left ventricular size is normal. 2. Left ventricular wall thickness is normal. 3. Overall left ventricular systolic function is normal with, an EF between 60 - 65 %. 4. The right ventricle is mildly enlarged. 5. There is mild aortic valve sclerosis. 6. The mitral valve is normal. 7. Mild tricuspid regurgitation present. 8. There is severe pulmonary hypertension. 9. The right ventricular systolic pressure, as measured by Doppler, is 57.82mmHg. 10. The inferior vena cava is dilated with no significant inspiratory collapse which is consistent es timated right atrial pressure of >15 mmHg. 11. There is no pericardial effusion. CLAM DREDGER: Elizabeth Farris RDCS
[2021-01-04 11:27] LABS: Glucose,Whole Blood 110 mg/dL (75-99)
[2021-01-04] MEDS: LEVOFLOXACIN 500MG-D5W PMX 500 MG in DEXTROSE/WATER 1 100ML.BAG IVPB SCH (12:29)
--- NOTE | 2021-01-04 16:12 | P.PN ---
Subjective Patient is sedated and intubated this morning. She became very tachycardic and tachypneic when her sedation weaned off this morning. No acute events overnight reported by nursing staff. Objective - Vital Signs Vital signs: Vital Signs Temp 98.1 F 01/04/21 12:00 Pulse 76 01/04/21 15:00 Resp 20 01/04/21 15:00 BP 115/48 01/04/21 15:00 Pulse Ox 96 01/04/21 15:00 Intake & Output 01/03/21 01/04/21 01/04/21 18:59 06:59 18:59 Intake Total 6003.166 7515.870 999.769 Output Total 955 1105 880 Balance 328.982 280.870 119.769 Weight 54.6 kg 54.6 kg Intake: IV 912 858 802 Levofloxacin 500Mg-D5w 100 Pmx 500 mg In Dextrose/ Water 1 100ml.bag @ 100 mls/hr IVPB Q24H [facility] Rx#: [id number] Pressure bag 12 33 27 Sodium Chloride 0.9% 1, 900 825 675 000 ml @ 75 mls/hr IV . [id number] [facility] Rx#:[id number] Intake, IV Titration 371.982 527.870 107.769 Amount Dexmedetomidine/0.9% NaCl 74.220 (Pmx) 400 mcg In Empty Bag 1 bag @ 0.2 MCG/KG/HR 2.381 mls/hr IV .Q24H [facility] Rx#:[id number] Norepinephrine 4 mg In 171.177 280.297 1.875 Sodium Chloride 0.9% 250 ml @ 0.05 MCG/KG/MIN 9. 073 mls/hr IV .Q24H [facility] Rx#:[id number] Sodium Chloride 0.9% 1, 75 000 ml @ 75 mls/hr IV . [id number] [facility] Rx#:[id number] propofoL 1,000 mg In 51.585 247.573 105.894 Empty Bag 1 bag @ Titrate IV .Q0M [facility] Rx#: [id number] Tube Feeding 60 Other 30 Output: Gastric Drainage 400 Urine 955 1105 480 Other: Voiding Method Indwelling Catheter Indwelling Catheter Indwelling Catheter ABP, PAP, CO, CI - Last Documented Arterial Blood Pressure 117/41 - Exam General: The patient is sedated and intubated Eye: there is normal conjunctiva bilaterally. Neck: The neck is supple, there is no JVD. Cardiovascular: Normal S1-S2, no S3-S4, no murmurs. Respiratory: Lungs diminished with mechanical ventilator sounds Gastrointestinal: Abdomen is soft, nontender Musculoskeletal: There is no pedal edema. Skin: Skin is warm and dry - Labs CBC & Chem 7: 01/04/21 04:00 01/04/21 04:00 Labs: Abnormal Lab Results - Last 24 Hours (Table) 01/03/21 01/04/21 01/04/21 Range/Units 17:28 00:03 04:00 WBC 12.8 H (3.8-10.6) k/uL RBC 3.46 L (3.80-5.40) m/uL Hgb 10.0 L (11.4-16.0) gm/dL Hct 33.7 L (34.0-46.0) % MCHC 29.7 L (31.0-37.0) g/dL Neutrophils # 11.7 H (1.3-7.7) k/uL Lymphocytes # 0.5 L (1.0-4.8) k/uL ABG pCO2 (35-45) mmHg ABG HCO3 (21-25) mmol/L ABG Total CO2 (19-24) mmol/L ABG O2 Saturation (94-97) % Sodium (137-145) mmol/L Carbon Dioxide (22-30) mmol/L Creatinine (0.52-1.04) mg/dL Glucose (74-99) mg/dL POC Glucose (mg/dL) 136 H 112 H (75-99) mg/dL 01/04/21 01/04/21 01/04/21 Range/Units 04:00 05:29 05:33 WBC (3.8-10.6) k/uL RBC (3.80-5.40) m/uL Hgb (11.4-16.0) gm/dL Hct (34.0-46.0) % MCHC (31.0-37.0) g/dL Neutrophils # (1.3-7.7) k/uL Lymphocytes # (1.0-4.8) k/uL ABG pCO2 70 H (35-45) mmHg ABG HCO3 38 H (21-25) mmol/L ABG Total CO2 40 H (19-24) mmol/L ABG O2 Saturation 97.4 H (94-97) % Sodium 134 L (137-145) mmol/L Carbon Dioxide 35 H (22-30) mmol/L Creatinine 0.40 L (0.52-1.04) mg/dL Glucose 119 H (74-99) mg/dL POC Glucose (mg/dL) 101 H (75-99) mg/dL 01/04/21 Range/Units 11:26 WBC (3.8-10.6) k/uL RBC (3.80-5.40) m/uL Hgb (11.4-16.0) gm/dL Hct (34.0-46.0) % MCHC (31.0-37.0) g/dL Neutrophils # (1.3-7.7) k/uL Lymphocytes # (1.0-4.8) k/uL ABG pCO2 (35-45) mmHg ABG HCO3 (21-25) mmol/L ABG Total CO2 (19-24) mmol/L ABG O2 Saturation (94-97) % Sodium (137-145) mmol/L Carbon Dioxide (22-30) mmol/L Creatinine (0.52-1.04) mg/dL Glucose (74-99) mg/dL POC Glucose (mg/dL) 110 H (75-99) mg/dL Microbiology - Last 24 Hours (Table) 01/03/21 11:05 Gram Stain - Preliminary Sputum Sputum Culture - Preliminary Assessment and Plan Assessment: This is a 80-year-old female that presented to the emergency room with some shortness of breath and confusion. Patient was evaluated in the ER and will be admitted to the hospital for further management of her medical problems noted below. On 01/02 patient mentation was deteriorating and a blood gas showed evidence of acute respiratory failure with respiratory acidosis. Patient was started on BiPAP and transferred to the ICU. On 01/02 1 in the morning despite improvement in her serial blood gas patient had a PEA arrest requiring one round CPR and IV epinephrine with successful ROSC. She was intubated and started on mechanical ventilation. Below is a list of her medical problems at this during this hospitalization. 1. Acute hypercapnic respiratory failure with respiratory acidosis 2. PEA arrest 3. Underlying COPD/emphysema with suspected pneumonia on chest x-ray 4. Hypovolemic hyponatremia on presentation improved with IV fluid 5. Chronic hypoxic respiratory failure on 2 L of oxygen at home 6. History of lung cancer and colon cancer in remission 7. Essential hypertension 8. CODE STATUS, changed to DO NOT RESUSCITATE. Discussed by me with her on 01/03 Patient is currently sedated and intubated. Mechanical ventilator managed by ICU team Started on Levaquin day #2 Echocardiogram showed preserved ejection fraction with no significant valvular abnormalities. Severe pulmonary hypertension noted. Patient's reports negative recent cardiac stress test We will continue ICU care otherwise. Lovenox for DVT prophylaxis. IV Protonix for GI prophylaxis
[2021-01-04 17:24] LABS: Glucose,Whole Blood 121 mg/dL (75-99)
[2021-01-05] MEDS: INSULIN ASPART (NovoLOG) 100 UNIT/ML VIAL SQ SCH ×5 (00:07→23:33)
[2021-01-05 00:08] LABS: Glucose,Whole Blood 129 mg/dL (75-99)
[2021-01-05] MEDS: methylPREDNISolone SOD SUCCI 40 MG/ML 1 ML VIAL IV SCH ×5 (00:09→23:36)
[2021-01-05] MEDS: SODIUM CHLORIDE 0.9% 1,000 ML IV SCH ×2 (00:09→14:17)
[2021-01-05] MEDS: DEXMEDETOMIDINE/0.9% NACL(PMX) 400 MCG in EMPTY BAG 1 BAG IV SCH (00:44)
[2021-01-05 04:46] LABS: Basophils % (A) 0 %; Eosinophils % (A) 0 %; HCT 30.3 % (34.0-46.0); HGB 9.2 gm/dL (11.4-16.0); Hypochromasia Marked; Lymphocytes # (A) 0.5 k/uL (1.0-4.8); Lymphocytes % (A) 5 %; MCH 29.2 pg (25.0-35.0); MCHC 30.3 g/dL (31.0-37.0); MCV 96.5 fL (80.0-100.0); Mean Platelet Volume 8.8; Monocytes # (A) 0.5 k/uL (0-1.0); Monocytes % (A) 6 %; Neutrophils # (A) 8.2 k/uL (1.3-7.7); Neutrophils % (A) 88 %; Platelet Count 136 k/uL (150-450); RBC 3.14 m/uL (3.80-5.40); RDW 14.2 % (11.5-15.5); WBC 9.3 k/uL (3.8-10.6)
[2021-01-05 04:57] LABS: African American GFR (CKD) >90 (>60 ml/min/1.73 sqM); Anion Gap -2 mmol/L; Blood Urea Nitrogen 17 mg/dL (7-17); Calcium 8.4 mg/dL (8.4-10.2); Carbon Dioxide 39 mmol/L (22-30); Chloride 98 mmol/L (98-107); Glucose 141 mg/dL (74-99); Non-African American GFR(CKD) >90 (>60 ml/min/1.73 sqM); Potassium 4.4 mmol/L (3.5-5.1); Sodium 135 mmol/L (137-145)
[2021-01-05 05:27] LABS: ABG Base Excess 13.8 mmol/L; ABG PH 7.34 (7.35-7.45); ABG PO2 83 mmHg (83-108); ABG TCO2 42 mmol/L (19-24); Allen Test Performed? Yes
[2021-01-05 05:46] LABS: ABG HCO3 40 mmol/L (21-25); ABG PCO2 73 mmHg (35-45)
[2021-01-05 06:07] LABS: Glucose,Whole Blood 165 mg/dL (75-99)
[2021-01-05] MEDS: IPRATROPIUM-ALBUTEROL 3 ML NEB INHALATION SCH ×4 (07:06→21:16)
--- NOTE | 2021-01-05 08:06 | XR ---
EXAMINATION TYPE: XR chest 1V portable DATE OF EXAM: 01/05/2021 CLINICAL HISTORY: Difficulty breathing progress study. TECHNIQUE: Single AP portable upright view of the chest is obtained. COMPARISON: Chest x-ray from one day earlier and older studies. FINDINGS: Stable endotracheal and orogastric tubes. Cardiac silhouette size stable and within normal limits. Chronic parenchymal changes with right great er than left bibasilar opacities. Osseous structures are demineralized. IMPRESSION: Chronic changes with right greater than left bibasilar acute infiltrate and/or atelectasi s redemonstrated. No significant change from 1 day earlier.
[2021-01-05] MEDS: ENOXAPARIN 40 MG/0.4 ML SYRINGE SQ SCH (09:27)
[2021-01-05] MEDS: amLODIPine 5 MG TAB PO SCH (09:27)
[2021-01-05] MEDS: CHLORHEXIDINE GLUCONATE 15 ML CUP MUCOUS MEM SCH (09:27)
[2021-01-05] MEDS: PANTOPRAZOLE 40 MG/10 ML VIAL IVP SCH (09:28)
[2021-01-05] MEDS: FLUTICASONE 50MCG/SPRAY NASAL 16GM EA NOSTRIL SCH (09:28)
[2021-01-05] MEDS: VIT A,C & E-LUTEIN-MINERALS 1 EACH TAB PO SCH ×2 (09:28→20:19)
--- NOTE | 2021-01-05 10:16 | P.PN ---
Subjective Progress Note Date: 01/05/21 Principal diagnosis: Respiratory failure secondary to COPD. This is an 80-year-old female with history of multiple medical problems including severe COPD, chronic hypoxic respiratory failure, history of lung cancer and history of colon cancer supposedly both are in remission. Patient was admitted through the emergency room on 12/31/20, and apparently her complaint was shortness of breath and confusion according to the . And the patient has been talking about her mother who is . Patient is normally on oxygen at 2 L/m, upon admission the patient was noted to have profound hypoxia and hypercapnia. Her pCO2 was as high as 120. Late yesterday, I was made aware of this patient, recommended that the patient stays on BiPAP because of her hypercapnia, and later on she had a follow-up ABG which showed minimal improvement however the patient was getting more and more agitated. Patient was transferred to the ICU, and she was placed on BiPAP, she was also p laced on Precedex. Overnight the patient did extremely well, and follow-up ABG showed significant improvement in her pCO2 and good improvement in her pH. However early this morning the patient developed a sudden episode of pulseless electrical activity, and she received CPR for almost 2 minutes. As I was walking into the ICU, I was notified about the patient being coded. Ran into the room, intubated the patient, and within a minute, there was return of spontaneous circulation, and there was evidence of adequate blood pressure. Patient was placed on propofol, repeat ABG shortly after intubation showed a pO2 of 334 pCO2 of 74 pH of 7.27. Hence the patient was placed on FiO2 of 40%, tidal volume of 300, rate of 20, and PEEP of 5. Patient was kept on propofol at 30 mcg/kg/m, Precedex was discontinued, she required small dose of norepinephrine at 0.08 mcg/kg/m. Went ahead and placed a right femoral triple- lumen catheter and a right radial arterial line were both done. The admitting physician discussed her CODE STATUS with her and the CODE STATUS was changed shortly after to DO NOT RESUSCITATE and the patient is not to be resuscitated if she addressed again. Antibiotics morales, patient is on Levaquin, she is also on Solu-Medrol, bronchodilators, and Lovenox. Progress note dated 01/04/2021. This is an 80-year-old female seen by my partner yesterday in consultation. She was admitted to the hospital on December 31 with a COPD exacerbation. Unfortunately, on January 03, she has a episode of pulseless electrical activity (PEA), and required intubation on January 03. CPR lasted about 5 minutes. The patient is currently on the volume assist control mode rate of 20 tidal volume at 300, FiO2 40%, and PEEP of 5. Arterial blood gases show a PaO2 of 83 pCO2 70 and pH is 7.34. The patient is a chronic CO2 retainer. Her baseline PaCO2 is right around 60 mmHg. She's currently on saline at 75 mL an hour, propofol at 40 mcg/kg/m, norepinephrine which is on hold, and without 2 feeds. They will be started today. The patient will have a daily interruption of sedation and a spontaneous breathing trial today. She is a DO NOT RESUSCITATE. The patient is currently on Levaquin. I was just notified by the nurses, the patient did not do well with her spontaneous breathing trial, and her respiratory rate went up to 40-50 breaths per minute, the rapid shallow breathing index was 194, tidal volume was less than 200 mL, saturations were 88%, the patient was very agitated with a blood pressure 160/60. White count 12.8, hemoglobin 10, hematocrit 33.7, and platelet count 181,000. Sodium 134, potassium 4.8, chlorides 98, CO2 35, BUN 14, creatinine 0.4. Chest x-ray showed patchy bibasilar infiltrates, right greater than left, suggesting the possibility of aspiration. Progress note dated 01/05/2021. 80-year-old female seen by my partner in consultation 2 days ago. She was admitted to the hospital on December 31 with a COPD exacerbation, but unfortunately, on January 03, she episode of pulseless electrical activity, which required intubation on January 03. CPR lasted about 5 minutes before there was return of spontaneous circulation. The patient remains on the ventilator. Vent settings include the volume assist control mode, rate of 20, tidal volume 300, FiO2 40%, and PEEP of 5. Arterial blood gases show pO2 of 83, CO2 73, and a pH is 7.34. The patient is receiving propofol at 50 mcg/kg/m, saline at 75 mL an hour, and vital AF at 36 mL an hour, which is goal. White count 9.3, hemoglobin 9.2, hematocrit 30.3, platelet count 136,000. Sodium 135, potassium 4.4, chlorides 98, CO2 39, BUN 17, and creatinine 0.48. Chest x-ray show some chronic changes with right greater than left basilar infiltrates and/or atelectasis. Objective - Vital Signs Vital signs: Vital Signs Temp 98.9 F 01/05/21 04:00 Pulse 73 01/05/21 07:07 Resp 20 01/05/21 07:00 BP 119/52 01/05/21 07:00 Pulse Ox 94 L 01/05/21 07:00 Intake & Output 01/04/21 01/05/21 01/05/21 18:59 06:59 18:59 Intake Total 2562.284 5183.731 114 Output Total 1070 695 45 Balance 320.654 904.731 69 Weight 54.6 kg 59.3 kg Intake: IV 1036 936 78 Levofloxacin 500Mg-D5w 100 Pmx 500 mg In Dextrose/ Water 1 100ml.bag @ 100 mls/hr IVPB Q24H [facility] Rx#: [id number] Pressure bag 36 36 3 Sodium Chloride 0.9% 1, 900 900 75 000 ml @ 75 mls/hr IV . [id number] [facility] Rx#:[id number] Intake, IV Titration 174.654 185.731 Amount Norepinephrine 4 mg In 1.875 7.380 Sodium Chloride 0.9% 250 ml @ 0.05 MCG/KG/MIN 9. 073 mls/hr IV .Q24H [facility] Rx#:[id number] propofoL 1,000 mg In 172.779 178.351 Empty Bag 1 bag @ Titrate IV .Q0M [facility] Rx#: [id number] Tube Feeding 120 388 36 Other 60 90 Output: Gastric Drainage 400 Urine 670 695 45 Other: Voiding Method Indwelling Catheter Indwelling Catheter ABP, PAP, CO, CI - Last Documented Arterial Blood Pressure 150/39 - Exam No acute distress, sedated, with an orally placed endotracheal tube and NG tube. HEENT examination is grossly unremarkable. Neck supple. Full range of motion. No adenopathy thyromegaly or neck vein distention. Cardiovascular examination reveals regular rhythm rate. S1-S2 normal. No S3 or S4. No discernible murmur noted. Heart sounds are distant. Heart rate 73 bpm. Lungs reveal coarse bilateral rhonchi and wheezes. No crackles. Breath sounds are equal bilaterally. Saturations are 94% on the ventilator. Abdomen soft without bowel sounds. No masses or tenderness appreciated. Extremities are intact. No cyanosis clubbing or edema. Skin is without rash or lesion. Neurologic examination cannot be adequately assessed as the patient's currently sedated on propofol. - Labs CBC & Chem 7: 01/05/21 04:34 01/05/21 04:34 Labs: Abnormal Lab Results - Last 24 Hours (Table) 01/04/21 01/04/21 01/05/21 Range/Units 11:26 17:22 00:06 RBC (3.80-5.40) m/uL Hgb (11.4-16.0) gm/dL Hct (34.0-46.0) % MCHC (31.0-37.0) g/dL Plt Count (150-450) k/uL Neutrophils # (1.3-7.7) k/uL Lymphocytes # (1.0-4.8) k/uL ABG pH (7.35-7.45) ABG pCO2 (35-45) mmHg ABG HCO3 (21-25) mmol/L ABG Total CO2 (19-24) mmol/L Sodium (137-145) mmol/L Carbon Dioxide (22-30) mmol/L Creatinine (0.52-1.04) mg/dL Glucose (74-99) mg/dL POC Glucose (mg/dL) 110 H 121 H 129 H (75-99) mg/dL 01/05/21 01/05/21 01/05/21 Range/Units 04:34 04:34 05:23 RBC 3.14 L (3.80-5.40) m/uL Hgb 9.2 L (11.4-16.0) gm/dL Hct 30.3 L (34.0-46.0) % MCHC 30.3 L (31.0-37.0) g/dL Plt Count 136 L (150-450) k/uL Neutrophils # 8.2 H (1.3-7.7) k/uL Lymphocytes # 0.5 L (1.0-4.8) k/uL ABG pH 7.34 L (7.35-7.45) ABG pCO2 73 H* (35-45) mmHg ABG HCO3 40 H* (21-25) mmol/L ABG Total CO2 42 H (19-24) mmol/L Sodium 135 L (137-145) mmol/L Carbon Dioxide 39 H (22-30) mmol/L Creatinine 0.48 L (0.52-1.04) mg/dL Glucose 141 H (74-99) mg/dL POC Glucose (mg/dL) (75-99) mg/dL 01/05/21 Range/Units 06:06 RBC (3.80-5.40) m/uL Hgb (11.4-16.0) gm/dL Hct (34.0-46.0) % MCHC (31.0-37.0) g/dL Plt Count (150-450) k/uL Neutrophils # (1.3-7.7) k/uL Lymphocytes # (1.0-4.8) k/uL ABG pH (7.35-7.45) ABG pCO2 (35-45) mmHg ABG HCO3 (21-25) mmol/L ABG Total CO2 (19-24) mmol/L Sodium (137-145) mmol/L Carbon Dioxide (22-30) mmol/L Creatinine (0.52-1.04) mg/dL Glucose (74-99) mg/dL POC Glucose (mg/dL) 165 H (75-99) mg/dL Microbiology - Last 24 Hours (Table) 01/03/21 11:05 Gram Stain - Final Sputum Sputum Culture - Final Assessment and Plan Assessment: Acute on chronic hypoxemic and hypercapnic respiratory failure, secondary to COPD exacerbation, with intubation on January 03, after 5 minutes of cardiopulmonary resuscitation and eventual return of spontaneous circulation, secondary to PEA. Community-acquired pneumonia right lower lobe, versus aspiration. History of benign essential hypertension. History of colon cancer. History of lung cancer. Plan: Plan dated 01/04/2021. The patient was given a daily interruption of sedation and spontaneous breathing trial. I, she did very poorly. She had to be placed back on the ventilator and sedated. We will resume sedation, start tube feeds, and continue to follow the patient and make recommendations where appropriate. The patient is a DO NOT RESUSCITATE patient. We will continue GI and DVT prophylaxis. She remains on Levaquin for suspected pneumonia. Prognosis is poor. We will continue to follow make recommendations where appropriate. Plan dated 01/05/2021. The patient did very poorly yesterday with her daily interruption of sedation and spontaneous breathing trial. We will attempt the same today. If she doesn't do well, we'll talk to the family about additional changes in her CODE STATUS including the possibility of comfort care/terminal wean. The patient remains on propofol. Arterial blood gases are excellent for this patient. She is being nourished at goal, vital AF at 36 mL an hour. Labs, x-rays, and medications are all reviewed. The patient remains on antibiotics for suspected pneumonia. Prognosis is poor. We will continue to follow make recommendations where appropriate. Time with Patient: Greater than 30
[2021-01-05 11:47] LABS: ABG Base Excess 15.2 mmol/L; ABG Oxygen Saturation 96.1 % (94-97); ABG PH 7.34 (7.35-7.45); ABG PO2 79 mmHg (83-108); ABG TCO2 43 mmol/L (19-24); Allen Test Performed? Yes
[2021-01-05 11:51] LABS: ABG PCO2 77 mmHg (35-45)
[2021-01-05 11:52] LABS: ABG HCO3 41 mmol/L (21-25)
[2021-01-05] MEDS: LEVOFLOXACIN 500MG-D5W PMX 500 MG in DEXTROSE/WATER 1 100ML.BAG IVPB SCH (14:17)
[2021-01-05 14:23] LABS: Glucose,Whole Blood 122 mg/dL (75-99)
--- NOTE | 2021-01-05 14:31 | P.PN ---
Subjective Patient is sedated and intubated this morning. No acute events overnight reported by nursing staff. Objective - Vital Signs Vital signs: Vital Signs Temp 97.9 F 01/05/21 12:00 Pulse 98 01/05/21 14:00 Resp 19 01/05/21 14:00 BP 150/61 01/05/21 14:00 Pulse Ox 98 01/05/21 14:00 Intake & Output 01/04/21 01/05/21 01/05/21 18:59 06:59 18:59 Intake Total 7924.293 0648.731 696 Output Total 1070 695 400 Balance 320.654 904.731 296 Weight 54.6 kg 59.3 kg Intake: IV 1036 936 624 Levofloxacin 500Mg-D5w 100 Pmx 500 mg In Dextrose/ Water 1 100ml.bag @ 100 mls/hr IVPB Q24H [facility] Rx#: [id number] Pressure bag 36 36 24 Sodium Chloride 0.9% 1, 900 900 600 000 ml @ 75 mls/hr IV . [id number] [facility] Rx#:[id number] Intake, IV Titration 174.654 185.731 Amount Norepinephrine 4 mg In 1.875 7.380 Sodium Chloride 0.9% 250 ml @ 0.05 MCG/KG/MIN 9. 073 mls/hr IV .Q24H [facility] Rx#:[id number] propofoL 1,000 mg In 172.779 178.351 Empty Bag 1 bag @ Titrate IV .Q0M [facility] Rx#: [id number] Tube Feeding 120 388 72 Other 60 90 Output: Gastric Drainage 400 Urine 670 695 400 Other: Voiding Method Indwelling Catheter Indwelling Catheter Indwelling Catheter ABP, PAP, CO, CI - Last Documented Arterial Blood Pressure 173/54 - Exam General: The patient is sedated and intubated Eye: there is normal conjunctiva bilaterally. Neck: The neck is supple, there is no JVD. Cardiovascular: Normal S1-S2, no S3-S4, no murmurs. Respiratory: Lungs diminished with mechanical ventilator sounds Gastrointestinal: Abdomen is soft, nontender Musculoskeletal: There is no pedal edema. Skin: Skin is warm and dry - Labs CBC & Chem 7: 01/05/21 04:34 01/05/21 04:34 Labs: Abnormal Lab Results - Last 24 Hours (Table) 01/04/21 01/05/21 01/05/21 Range/Units 17:22 00:06 04:34 RBC 3.14 L (3.80-5.40) m/uL Hgb 9.2 L (11.4-16.0) gm/dL Hct 30.3 L (34.0-46.0) % MCHC 30.3 L (31.0-37.0) g/dL Plt Count 136 L (150-450) k/uL Neutrophils # 8.2 H (1.3-7.7) k/uL Lymphocytes # 0.5 L (1.0-4.8) k/uL ABG pH (7.35-7.45) ABG pCO2 (35-45) mmHg ABG pO2 (83-108) mmHg ABG HCO3 (21-25) mmol/L ABG Total CO2 (19-24) mmol/L Sodium (137-145) mmol/L Carbon Dioxide (22-30) mmol/L Creatinine (0.52-1.04) mg/dL Glucose (74-99) mg/dL POC Glucose (mg/dL) 121 H 129 H (75-99) mg/dL 01/05/21 01/05/21 01/05/21 Range/Units 04:34 05:23 06:06 RBC (3.80-5.40) m/uL Hgb (11.4-16.0) gm/dL Hct (34.0-46.0) % MCHC (31.0-37.0) g/dL Plt Count (150-450) k/uL Neutrophils # (1.3-7.7) k/uL Lymphocytes # (1.0-4.8) k/uL ABG pH 7.34 L (7.35-7.45) ABG pCO2 73 H* (35-45) mmHg ABG pO2 (83-108) mmHg ABG HCO3 40 H* (21-25) mmol/L ABG Total CO2 42 H (19-24) mmol/L Sodium 135 L (137-145) mmol/L Carbon Dioxide 39 H (22-30) mmol/L Creatinine 0.48 L (0.52-1.04) mg/dL Glucose 141 H (74-99) mg/dL POC Glucose (mg/dL) 165 H (75-99) mg/dL 01/05/21 01/05/21 Range/Units 11:45 14:21 RBC (3.80-5.40) m/uL Hgb (11.4-16.0) gm/dL Hct (34.0-46.0) % MCHC (31.0-37.0) g/dL Plt Count (150-450) k/uL Neutrophils # (1.3-7.7) k/uL Lymphocytes # (1.0-4.8) k/uL ABG pH 7.34 L (7.35-7.45) ABG pCO2 77 H* (35-45) mmHg ABG pO2 79 L (83-108) mmHg ABG HCO3 41 H* (21-25) mmol/L ABG Total CO2 43 H (19-24) mmol/L Sodium (137-145) mmol/L Carbon Dioxide (22-30) mmol/L Creatinine (0.52-1.04) mg/dL Glucose (74-99) mg/dL POC Glucose (mg/dL) 122 H (75-99) mg/dL Microbiology - Last 24 Hours (Table) 01/03/21 11:05 Gram Stain - Final Sputum Sputum Culture - Final Assessment and Plan Assessment: This is a 80-year-old female that presented to the emergency room with some shortness of breath and confusion. Patient was evaluated in the ER and will be admitted to the hospital for further management of her medical problems noted below. On 01/02 patient mentation was deteriorating and a blood gas showed evidence of acute respiratory failure with respiratory acidosis. Patient was started on BiPAP and transferred to the ICU. On 01/02 1 in the morning despite improvement in her serial blood gas patient had a PEA arrest requiring one round CPR and IV epinephrine with successful ROSC. She was intubated and started on mechanical ventilation. Below is a list of her medical problems at this during this h ospitalization. 1. Acute hypercapnic respiratory failure with respiratory acidosis 2. PEA arrest 3. Underlying COPD/emphysema with suspected pneumonia on chest x-ray 4. Hypovolemic hyponatremia on presentation improved with IV fluid 5. Chronic hypoxic respiratory failure on 2 L of oxygen at home 6. History of lung cancer and colon cancer in remission 7. Essential hypertension 8. CODE STATUS, changed to DO NOT RESUSCITATE. Discussed by me with her on 01/03 Patient is currently sedated and intubated. Mechanical ventilator managed by ICU team Started on Levaquin day #3 Echocardiogram showed preserved ejection fraction with no significant valvular abnormalities. Severe pulmonary hypertension noted. Patient's reports negative recent cardiac stress test We will continue ICU care otherwise. Lovenox for DVT prophylaxis. IV Protonix for GI prophylaxis
[2021-01-05] MEDS: LABETALOL 5 MG/ML VIAL MDV IVP PRN ×2 (16:04→18:46)
[2021-01-05 18:14] LABS: Glucose,Whole Blood 118 mg/dL (75-99)
[2021-01-05] MEDS: MORPHINE SULFATE 2 MG/ML SYRINGE IVP PRN ×2 (20:20→23:36)
[2021-01-05 23:20] LABS: Glucose,Whole Blood 129 mg/dL (75-99)
[2021-01-06] MEDS: DEXMEDETOMIDINE/0.9% NACL(PMX) 400 MCG in EMPTY BAG 1 BAG IV SCH (00:32)
[2021-01-06] MEDS: NOREPINEPHRINE 4 MG in SODIUM CHLORIDE 0.9% 250 ML IV SCH (03:14)
[2021-01-06] MEDS: MORPHINE SULFATE 2 MG/ML SYRINGE IVP PRN ×2 (04:02→13:45)
[2021-01-06 04:55] LABS: HCT 34.4 % (34.0-46.0); HGB 10.2 gm/dL (11.4-16.0); Hypochromasia Marked; MCH 29.3 pg (25.0-35.0); MCHC 29.6 g/dL (31.0-37.0); MCV 98.8 fL (80.0-100.0); Mean Platelet Volume 7.7; Platelet Count 157 k/uL (150-450); RBC 3.48 m/uL (3.80-5.40); RDW 14.1 % (11.5-15.5); WBC 12.1 k/uL (3.8-10.6)
[2021-01-06 05:04] LABS: ALT 145 U/L (4-34); AST 45 U/L (14-36); African American GFR (CKD) >90 (>60 ml/min/1.73 sqM); Alkaline Phosphatase 78 U/L (38-126); Anion Gap 0 mmol/L; Blood Urea Nitrogen 17 mg/dL (7-17); Calcium 8.3 mg/dL (8.4-10.2); Chloride 98 mmol/L (98-107); Glucose 122 mg/dL (74-99); Non-African American GFR(CKD) >90 (>60 ml/min/1.73 sqM); Potassium 4.5 mmol/L (3.5-5.1); Sodium 138 mmol/L (137-145); Total Bilirubin 0.3 mg/dL (0.2-1.3); Total Protein 5.5 g/dL (6.3-8.2)
[2021-01-06 05:10] LABS: Carbon Dioxide 40 mmol/L (22-30)
[2021-01-06 05:36] LABS: Band Neutrophils % 13 %; Lymphocytes # (M) 0.61 k/uL (1.0-4.8); Metamyelocytes # (M) 0.24 k/uL (0); Metamyelocytes % 2 %; Monocytes # (M) 0.61 k/uL (0-1.0); Myelocytes # (M) 0.36 k/uL (0); Myelocytes % 3 %; Neutrophils % (M) 73 %; Nucleated Red Blood Cells 0 /100 WBC (0-0); Total Cells Counted 200
[2021-01-06 05:37] LABS: Toxic Granulation Present
[2021-01-06 05:57] LABS: Glucose,Whole Blood 117 mg/dL (75-99)
[2021-01-06] MEDS: INSULIN ASPART (NovoLOG) 100 UNIT/ML VIAL SQ SCH ×3 (06:21→19:17)
[2021-01-06] MEDS: SODIUM CHLORIDE 0.9% 1,000 ML IV SCH ×2 (06:22→17:43)
[2021-01-06] MEDS: methylPREDNISolone SOD SUCCI 40 MG/ML 1 ML VIAL IV SCH ×3 (06:22→18:40)
[2021-01-06] MEDS: IPRATROPIUM-ALBUTEROL 3 ML NEB INHALATION SCH ×4 (07:38→21:11)
--- NOTE | 2021-01-06 08:17 | XR ---
EXAMINATION TYPE: XR chest 1V portable DATE OF EXAM: 01/06/2021 COMPARISON: 01/05/2021 INDICATION: Tube placement TECHNIQUE: Single frontal view of the chest is obtained. FINDINGS: The heart size is normal. The pulmonary vasculature is normal. Emphysematous changes are in the upper lung urena. Endotracheal tube and nasogastric tube is been re moved. Bibasilar infiltrates are present. Small right pleural effusion is present. This is worsening at the right base. This may be slightly increased at the left base. IMPRESSION: 1. Increasing bibasilar infiltrates with small right pleural effusion developing.
--- NOTE | 2021-01-06 10:55 | P.PN ---
Subjective Progress Note Date: 01/06/21 Principal diagnosis: Respiratory failure secondary to COPD. This is an 80-year-old female with history of multiple medical problems including severe COPD, chronic hypoxic respiratory failure, history of lung cancer and history of colon cancer supposedly both are in remission. Patient was admitted through the emergency room on 12/31/20, and apparently her complaint was shortness of breath and confusion according to the . And the patient has been talking about her mother who is . Patient is normally on oxygen at 2 L/m, upon admission the patient was noted to have profound hypoxia and hypercapnia. Her pCO2 was as high as 120. Late yesterday, I was made aware of this patient, recommended that the patient stays on BiPAP because of her hypercapnia, and later on she had a follow-up ABG which showed minimal improvement however the patient was getting more and more agitated. Patient was transferred to the ICU, and she was placed on BiPAP, she was also p laced on Precedex. Overnight the patient did extremely well, and follow-up ABG showed significant improvement in her pCO2 and good improvement in her pH. However early this morning the patient developed a sudden episode of pulseless electrical activity, and she received CPR for almost 2 minutes. As I was walking into the ICU, I was notified about the patient being coded. Ran into the room, intubated the patient, and within a minute, there was return of spontaneous circulation, and there was evidence of adequate blood pressure. Patient was placed on propofol, repeat ABG shortly after intubation showed a pO2 of 334 pCO2 of 74 pH of 7.27. Hence the patient was placed on FiO2 of 40%, tidal volume of 300, rate of 20, and PEEP of 5. Patient was kept on propofol at 30 mcg/kg/m, Precedex was discontinued, she required small dose of norepinephrine at 0.08 mcg/kg/m. Went ahead and placed a right femoral triple- lumen catheter and a right radial arterial line were both done. The admitting physician discussed her CODE STATUS with her and the CODE STATUS was changed shortly after to DO NOT RESUSCITATE and the patient is not to be resuscitated if she addressed again. Antibiotics morales, patient is on Levaquin, she is also on Solu-Medrol, bronchodilators, and Lovenox. Progress note dated 01/04/2021. This is an 80-year-old female seen by my partner yesterday in consultation. She was admitted to the hospital on December 31 with a COPD exacerbation. Unfortunately, on January 03, she has a episode of pulseless electrical activity (PEA), and required intubation on January 03. CPR lasted about 5 minutes. The patient is currently on the volume assist control mode rate of 20 tidal volume at 300, FiO2 40%, and PEEP of 5. Arterial blood gases show a PaO2 of 83 pCO2 70 and pH is 7.34. The patient is a chronic CO2 retainer. Her baseline PaCO2 is right around 60 mmHg. She's currently on saline at 75 mL an hour, propofol at 40 mcg/kg/m, norepinephrine which is on hold, and without 2 feeds. They will be started today. The patient will have a daily interruption of sedation and a spontaneous breathing trial today. She is a DO NOT RESUSCITATE. The patient is currently on Levaquin. I was just notified by the nurses, the patient did not do well with her spontaneous breathing trial, and her respiratory rate went up to 40-50 breaths per minute, the rapid shallow breathing index was 194, tidal volume was less than 200 mL, saturations were 88%, the patient was very agitated with a blood pressure 160/60. White count 12.8, hemoglobin 10, hematocrit 33.7, and platelet count 181,000. Sodium 134, potassium 4.8, chlorides 98, CO2 35, BUN 14, creatinine 0.4. Chest x-ray showed patchy bibasilar infiltrates, right greater than left, suggesting the possibility of aspiration. Progress note dated 01/05/2021. 80-year-old female seen by my partner in consultation 2 days ago. She was admitted to the hospital on December 31 with a COPD exacerbation, but unfortunately, on January 03, she episode of pulseless electrical activity, which required intubation on January 03. CPR lasted about 5 minutes before there was return of spontaneous circulation. The patient remains on the ventilator. Vent settings include the volume assist control mode, rate of 20, tidal volume 300, FiO2 40%, and PEEP of 5. Arterial blood gases show pO2 of 83, CO2 73, and a pH is 7.34. The patient is receiving propofol at 50 mcg/kg/m, saline at 75 mL an hour, and vital AF at 36 mL an hour, which is goal. White count 9.3, hemoglobin 9.2, hematocrit 30.3, platelet count 136,000. Sodium 135, potassium 4.4, chlorides 98, CO2 39, BUN 17, and creatinine 0.48. Chest x-ray show some chronic changes with right greater than left basilar infiltrates and/or atelectasis. Progress note dated 01/06/2021. 80-year-old female, again seen in room 258, in the ICU. The patient was successfully extubated on January 05. She is a DO NOT RESUSCITATE patient. She's currently on 2 L nasal cannula. She's getting saline at 75 mL an hour. The arterial line in the femoral triple-lumen catheter can be discontinued. Hospice consultation has been placed. Currently laboratory data includes a wh ite count 12.1, hemoglobin 10.2, hematocrit 34.4, and platelet count 157,000. Sodium 138, potassium 4.5, chlorides 98, CO2 40, BUN 17, and creatinine 0.34. A chest x-ray today, shows right basilar infiltrates. Objective - Vital Signs Vital signs: Vital Signs Temp 97.3 F L 01/06/21 04:00 Pulse 73 01/06/21 07:51 Resp 21 01/06/21 07:00 BP 123/65 01/06/21 07:00 Pulse Ox 98 01/06/21 07:41 Intake & Output 01/05/21 01/06/21 01/06/21 18:59 06:59 18:59 Intake Total 972 3165.4 78 Output Total 630 1080 75 Balance 342 2085.4 3 Weight 60 kg Intake: IV 936 3014 78 Bolus 2000 Pressure bag 36 39 3 Sodium Chloride 0.9% 1, 900 975 75 000 ml @ 75 mls/hr IV . [id number] STEPHANIE Rx#:[id number] Intake, IV Titration 151.4 Amount Norepinephrine 4 mg In 51.4 Sodium Chloride 0.9% 250 ml @ 0.05 MCG/KG/MIN 9. 073 mls/hr IV .Q24H STEPHANIE Rx#:[id number] propofoL 1,000 mg In 100 Empty Bag 1 bag @ Titrate IV .Q0M STEPHANIE Rx#: [id number] Tube Feeding 36 Output: Urine 630 1080 75 Other: Voiding Method Indwelling Catheter Indwelling Catheter ABP, PAP, CO, CI - Last Documented Arterial Blood Pressure 161/51 - Exam No acute distress, on 2 L nasal cannula, with saturations of 98%. HEENT examination is grossly unremarkable. Neck supple. Full range of motion. No adenopathy thyromegaly or neck vein distention. Cardiovascular examination reveals regular rhythm rate. S1-S2 normal. No S3 or S4. No discernible murmur noted. Heart sounds are distant. Heart rate 73 bpm. Lungs reveal coarse bilateral rhonchi and wheezes. No crackles. Breath sounds are equal bilaterally. Abdomen soft without bowel sounds. No masses or tenderness appreciated. Extremities are intact. No cyanosis clubbing or edema. Skin is without rash or lesion. Neurologic examination reveals a patient who is very lethargic and somnolent. - Labs CBC & Chem 7: 01/06/21 04:15 01/06/21 04:15 Labs: Abnormal Lab Results - Last 24 Hours (Table) 01/05/21 01/05/21 01/05/21 Range/Units 11:45 14:21 18:13 WBC (3.8-10.6) k/uL RBC (3.80-5.40) m/uL Hgb (11.4-16.0) gm/dL MCHC (31.0-37.0) g/dL Neutrophils # (Manual) (1.3-7.7) k/uL Lymphocytes # (Manual) (1.0-4.8) k/uL Metamyelocytes # (Man) (0) k/uL Myelocytes # (Manual) (0) k/uL ABG pH 7.34 L (7.35-7.45) ABG pCO2 77 H* (35-45) mmHg ABG pO2 79 L (83-108) mmHg ABG HCO3 41 H* (21-25) mmol/L ABG Total CO2 43 H (19-24) mmol/L Carbon Dioxide (22-30) mmol/L Creatinine (0.52-1.04) mg/dL Glucose (74-99) mg/dL POC Glucose (mg/dL) 122 H 118 H (75-99) mg/dL Calcium (8.4-10.2) mg/dL AST (14-36) U/L ALT (4-34) U/L Total Protein (6.3-8.2) g/dL Albumin (3.5-5.0) g/dL 01/05/21 01/06/21 01/06/21 Range/Units 23:17 04:15 04:15 WBC 12.1 H (3.8-10.6) k/uL RBC 3.48 L (3.80-5.40) m/uL Hgb 10.2 L (11.4-16.0) gm/dL MCHC 29.6 L (31.0-37.0) g/dL Neutrophils # (Manual) 10.40 H (1.3-7.7) k/uL Lymphocytes # (Manual) 0.61 L (1.0-4.8) k/uL Metamyelocytes # (Man) 0.24 H (0) k/uL Myelocytes # (Manual) 0.36 H (0) k/uL ABG pH (7.35-7.45) ABG pCO2 (35-45) mmHg ABG pO2 (83-108) mmHg ABG HCO3 (21-25) mmol/L ABG Total CO2 (19-24) mmol/L Carbon Dioxide 40 H (22-30) mmol/L Creatinine 0.34 L (0.52-1.04) mg/dL Glucose 122 H (74-99) mg/dL POC Glucose (mg/dL) 129 H (75-99) mg/dL Calcium 8.3 L (8.4-10.2) mg/dL AST 45 H (14-36) U/L ALT 145 H (4-34) U/L Total Protein 5.5 L (6.3-8.2) g/dL Albumin 3.0 L (3.5-5.0) g/dL 01/06/21 Range/Units 05:56 WBC (3.8-10.6) k/uL RBC (3.80-5.40) m/uL Hgb (11.4-16.0) gm/dL MCHC (31.0-37.0) g/dL Neutrophils # (Manual) (1.3-7.7) k/uL Lymphocytes # (Manual) (1.0-4.8) k/uL Metamyelocytes # (Man) (0) k/uL Myelocytes # (Manual) (0) k/uL ABG pH (7.35-7.45) ABG pCO2 (35-45) mmHg ABG pO2 (83-108) mmHg ABG HCO3 (21-25) mmol/L ABG Total CO2 (19-24) mmol/L Carbon Dioxide (22-30) mmol/L Creatinine (0.52-1.04) mg/dL Glucose (74-99) mg/dL POC Glucose (mg/dL) 117 H (75-99) mg/dL Calcium (8.4-10.2) mg/dL AST (14-36) U/L ALT (4-34) U/L Total Protein (6.3-8.2) g/dL Albumin (3.5-5.0) g/dL Microbiology - Last 24 Hours (Table) 01/03/21 11:05 Gram Stain - Final Sputum Sputum Culture - Final Assessment and Plan Assessment: Acute on chronic hypoxemic and hypercapnic respiratory failure, secondary to COPD exacerbation, with intubation on January 03, after 5 minutes of cardiopulmonary resuscitation and eventual return of spontaneous circulation, secondary to PEA. Status post successful extubation on January 05. Community-acquired pneumonia right lower lobe, versus aspiration. History of benign essential hypertension. History of colon cancer. History of lung cancer. Plan: Plan dated 01/04/2021. The patient was given a daily interruption of sedation and spontaneous breathing trial. I, she did very poorly. She had to be placed back on the ventilator and sedated. We will resume sedation, start tube feeds, and continue to follow the patient and make recommendations where appropriate. The patient is a DO NOT RESUSCITATE patient. We will continue GI and DVT prophylaxis. She remains on Levaquin for suspected pneumonia. Prognosis is poor. We will continue to follow make recommendations where appropriate. Plan dated 01/05/2021. The patient did very poorly yesterday with her daily interruption of sedation and spontaneous breathing trial. We will attempt the same today. If she doesn't do well, we'll talk to the family about additional changes in her CODE STATUS including the possibility of comfort care/terminal wean. The patient remains on propofol. Arterial blood gases are excellent for this patient. She is being nourished at goal, vital AF at 36 mL an hour. Labs, x-rays, and medications are all reviewed. The patient remains on antibiotics for suspected pneumonia. Prognosis is poor. We will continue to follow make recommendations where appropriate. Plan dated 01/06/2021. The patient remains on 2 L nasal cannula, and saline at 75 mL an hour. The patient's art line can be discontinued and the triple-lumen femoral catheter, can also be discontinued. The patient is a DO NOT RESUSCITATE patient. She is not to be reintubated. Labs, and x-rays, I reviewed. The chest x-ray today continues to show an infiltrate in the right lower lobe. She remains on Solu- Medrol, breathing treatments, and Levaquin. Additional recommendations and suggestions are forthcoming. Prognosis is guarded. We will continue to follow make recommendations where appropriate. Time with Patient: Greater than 30
[2021-01-06] MEDS: VIT A,C & E-LUTEIN-MINERALS 1 EACH TAB PO SCH (11:13)
[2021-01-06] MEDS: amLODIPine 5 MG TAB PO SCH (11:13)
[2021-01-06] MEDS: PANTOPRAZOLE 40 MG/10 ML VIAL IVP SCH (11:20)
[2021-01-06] MEDS: FLUTICASONE 50MCG/SPRAY NASAL 16GM EA NOSTRIL SCH (11:21)
[2021-01-06] MEDS: LEVOFLOXACIN 500MG-D5W PMX 500 MG in DEXTROSE/WATER 1 100ML.BAG IVPB SCH (11:22)
[2021-01-06] MEDS: ENOXAPARIN 40 MG/0.4 ML SYRINGE SQ SCH (11:22)
[2021-01-06 14:42] LABS: Glucose,Whole Blood 126 mg/dL (75-99)
[2021-01-06] MEDS ORDERED: MORPHINE SULFATE 2 MG/ML SYRINGE IVP PRN (16:23)
[2021-01-06] MEDS ORDERED: KETOROLAC 15 MG/ML 1 ML VIAL IVP PRN (16:26)
--- NOTE | 2021-01-06 19:02 | P.PN ---
Progress Note - Text Progress Note Date: 01/06/21 Advanced Care Planning: Diagnoses: Acute exacerbation of COPD, acute and chronic hypoxic respiratory failure Discussion: Person(s) present and participating in discussion: Patient, Summary: We discussed with the patient wants to go home by tomorrow. I discussed that she is likely to week and will not be medically ready to go home if she wants to pursue traditional medical care. I did discuss that if she wants to go home and feels as though she no longer has a good quality of life we could consider hospice. They would focus on keeping her comfortable, alleviating her shortness of breath, and preserving her dignity while she is still on this earth. Her and her will continue to think about this and may consider hospice if it gets to that point. would like to see her get stronger and be able to return home. I advised him that we will support them in any way that we can and champion either decision but it is up-to-date. A total of 16 minutes of face to face time was spent discussing advanced care planning.
--- NOTE | 2021-01-06 19:02 | P.PN ---
Subjective Progress Note Date: 01/06/21 Patient is an 80 yo CF with COPD on Home O2 at 2L ATC, prior lung cancer, and gerd who presented with complaints of shortness of breath and confusion. She was started on Bipap due to hypoxia and severe hypercapnia. She became more confused but did have an imrpovement in her hypercapina, despite this she became hypoxic on the morning of 01/03 and a code was called she was intubated. Patient extubated on 01/05/21. Patient seen and examined at bedside. She complains of pain all over and feel ing short of breath. She is asking to go home. She has not been eating or drinking much. She explains that she has been on oxygen since 2016 and wears 2 L around the clock at home. She follows up with a installation specialist out of [facility] on [address] She has never been intubated for COPD in the past. present at bedside. All questions answered. Case also discussed with nursing. General: Ill-appearing, no distress, appears at stated age Derm: warm, dry Head: atraumatic, normocephalic, symmetric Eyes: EOMI, no lid lag, anicteric sclera Mouth: no lip lesion, mucus membranes moist Cardiovascular: S1S2 reg, no murmur, positive posterior tibial pulse bilateral, Lungs: CTA bilateral, no rhonchi, no rales , no accessory muscle use Abdominal: soft, nontender to palpation, no guarding, no appreciable organomegaly Ext: no gross muscle atrophy, no edema, no contractures Neuro: CN II-XI grossly intact, no focal neuro deficits Psych: Alert, oriented 3, flat affect Pneumonia, probable aspiration and gram-negative Acute exacerbation of COPD Acute on chronic hypoxic hypercapnic respiratory failure Aborted sudden cardiac -Patient is currently on Levaquin -Bronchodilators -Solu-Medrol -Pulmonary recommendations appreciated -Echocardiogram with preserved ejection fraction of 60-65%, severe pulmonary hypertension -Off vasopressors Rib pain -Start Toradol, increase morphine dosing Transaminitis -Likely secondary to ischemia during code -Repeat in a.m. -No further testing at this time Dysphagia -Speech recommendations appreciated -No appetite per Weakness -PT OT -Fall precautions Hypovolemic hyponatremia, resolved Hypertension History of lung and colon cancer in remission DVT prophylaxis: Lovenox Discussed with:, , nursing Anticipated discharge: 2 to [address]: Home with home health A total of 45 minutes was spent on the care of this complex patient more than 50% of the time was spent in counseling and care coordination. Objective - Vital Signs Vital signs: Vital Signs Temp 96.1 F L 01/06/21 16:00 Pulse 74 01/06/21 18:00 Resp 20 01/06/21 18:00 BP 124/56 01/06/21 18:00 Pulse Ox 96 01/06/21 18:00 Intake & Output 01/06/21 01/06/21 01/07/21 06:59 18:59 06:59 Intake Total 3165.4 546 Output Total 1080 370 Balance 2085.4 176 Weight 60 kg 60 kg Intake: IV 3014 546 0.45 450 Bolus 2000 Pressure bag 39 21 Sodium Chloride 0.9% 1, 975 75 000 ml @ 75 mls/hr IV . [id number] STEPHANIE Rx#:[id number] Intake, IV Titration 151.4 Amount Norepinephrine 4 mg In 51.4 Sodium Chloride 0.9% 250 ml @ 0.05 MCG/KG/MIN 9. 073 mls/hr IV .Q24H STEPHANIE Rx#:[id number] propofoL 1,000 mg In 100 Empty Bag 1 bag @ Titrate IV .Q0M STEPHANIE Rx#: [id number] Output: Urine 1080 370 Other: Voiding Method Indwelling Catheter ABP, PAP, CO, CI - Last Documented Arterial Blood Pressure 145/39 - Labs CBC & Chem 7: 01/06/21 04:15 01/06/21 04:15 Labs: Abnormal Lab Results - Last 24 Hours (Table) 01/05/21 01/06/21 01/06/21 Range/Units 23:17 04:15 04:15 WBC 12.1 H (3.8-10.6) k/uL RBC 3.48 L (3.80-5.40) m/uL Hgb 10.2 L (11.4-16.0) gm/dL MCHC 29.6 L (31.0-37.0) g/dL Neutrophils # (Manual) 10.40 H (1.3-7.7) k/uL Lymphocytes # (Manual) 0.61 L (1.0-4.8) k/uL Metamyelocytes # (Man) 0.24 H (0) k/uL Myelocytes # (Manual) 0.36 H (0) k/uL Carbon Dioxide 40 H (22-30) mmol/L Creatinine 0.34 L (0.52-1.04) mg/dL Glucose 122 H (74-99) mg/dL POC Glucose (mg/dL) 129 H (75-99) mg/dL Calcium 8.3 L (8.4-10.2) mg/dL AST 45 H (14-36) U/L ALT 145 H (4-34) U/L Total Protein 5.5 L (6.3-8.2) g/dL Albumin 3.0 L (3.5-5.0) g/dL 01/06/21 01/06/21 Range/Units 05:56 14:40 WBC (3.8-10.6) k/uL RBC (3.80-5.40) m/uL Hgb (11.4-16.0) gm/dL MCHC (31.0-37.0) g/dL Neutrophils # (Manual) (1.3-7.7) k/uL Lymphocytes # (Manual) (1.0-4.8) k/uL Metamyelocytes # (Man) (0) k/uL Myelocytes # (Manual) (0) k/uL Carbon Dioxide (22-30) mmol/L Creatinine (0.52-1.04) mg/dL Glucose (74-99) mg/dL POC Glucose (mg/dL) 117 H 126 H (75-99) mg/dL Calcium (8.4-10.2) mg/dL AST (14-36) U/L ALT (4-34) U/L Total Protein (6.3-8.2) g/dL Albumin (3.5-5.0) g/dL
[2021-01-07 00:38] LABS: Glucose,Whole Blood 109 mg/dL (75-99)
[2021-01-07] MEDS: VIT A,C & E-LUTEIN-MINERALS 1 EACH TAB PO SCH ×2 (00:48→08:50)
[2021-01-07] MEDS: INSULIN ASPART (NovoLOG) 100 UNIT/ML VIAL SQ SCH ×2 (01:34→07:01)
[2021-01-07] MEDS: methylPREDNISolone SOD SUCCI 40 MG/ML 1 ML VIAL IV SCH ×2 (01:34→07:01)
[2021-01-07] MEDS: SODIUM CHLORIDE 0.9% 1,000 ML IV SCH (01:35)
[2021-01-07 06:24] LABS: Glucose,Whole Blood 113 mg/dL (75-99)
[2021-01-07 07:24] LABS: Glucose,Whole Blood 106 mg/dL (75-99)
--- NOTE | 2021-01-07 07:48 | XR ---
EXAMINATION TYPE: XR chest 1V portable DATE OF EXAM: 01/07/2021 CLINICAL HISTORY: Right pleural effusion. Bilateral infiltrates. TECHNIQUE: Single AP portable upright view of the chest is obtained. COMPARISON: Chest x-ray from one day earlier and older studies. FINDINGS: Cardiac silhouette size is stable and within normal limits. Chronic parenchymal changes with right gr eater than left bibasilar opacities and stable small right pleural effusion. Osseous structures are d emineralized. IMPRESSION: Chronic changes with right greater than left bibasilar acute infiltrate and/or atelectasi s and small right pleural effusion all redemonstrated. No significant change from 1 day earlier.
[2021-01-07 08:17] VITALS: BP 110/42; PULSE 96; RESP 14; TEMP 99.6
[2021-01-07] MEDS: IPRATROPIUM-ALBUTEROL 3 ML NEB INHALATION SCH (08:25)
[2021-01-07] MEDS: ENOXAPARIN 40 MG/0.4 ML SYRINGE SQ SCH (08:49)
[2021-01-07] MEDS: FLUTICASONE 50MCG/SPRAY NASAL 16GM EA NOSTRIL SCH (08:49)
[2021-01-07] MEDS: amLODIPine 5 MG TAB PO SCH (08:49)
[2021-01-07] MEDS: PANTOPRAZOLE 40 MG/10 ML VIAL IVP SCH (08:50)
[2021-01-07] MEDS ORDERED: LORazepam 2 MG/ML INJ IV PRN (08:52)
[2021-01-07] MEDS ORDERED: MORPHINE SULFATE 4 MG/ML SYRINGE IVP PRN (08:52)
[2021-01-07] MEDS ORDERED: ATROPINE OPHTH SOLN 1% 5ML BTL SUBLINGUAL PRN (08:56)
[2021-01-07] MEDS ORDERED: ARTIFICIAL TEARS-HYPROMELLOSE DROPS 15 ML BTL BOTH EYES PRN (08:56)
--- NOTE | 2021-01-07 08:59 | P.PN ---
Progress Note - Text Progress Note Date: 01/07/21 Called by nursing that patient is unresponsive with agonal respirations. Came to bedside and evaluated patient, agree with nursing assessment. Called who wants comfort measures at this time, confirms DNR status. aware that activly dying and he is on the way to the hospital. Orders changed to comfort all meds stopped. Morphine, Ativan, scopolamine, and atropine ordered.
[2021-01-07] MEDS ORDERED: SCOPOLAMINE 1.5MG/72HR PATCH TRANSDERM SCH (09:00)
--- NOTE | 2021-01-07 13:03 | P.PN ---
Subjective Progress Note Date: 01/07/21 This is an 80-year-old female with history of multiple medical problems including severe COPD, chronic hypoxic respiratory failure, history of lung cancer and history of colon cancer supposedly both are in remission. Patient was admitted through the emergency room on 12/31/20, and apparently her complain t was shortness of breath and confusion according to the . And the patient has been talking about her mother who is . Patient is normally on oxygen at 2 L/m, upon admission the patient was noted to have profound hypoxia and hypercapnia. Her pCO2 was as high as 120. Late yesterday, I was made aware of this patient, recommended that the patient stays on BiPAP because of her hypercapnia, and later on she had a follow-up ABG which showed minimal improvement however the patient was getting more and more agitated. Patient was transferred to the ICU, and she was placed on BiPAP, she was also placed on Precedex. Overnight the patient did extremely well, and follow-up ABG showed significant improvement in her pCO2 and good improvement in her pH. However early this morning the patient developed a sudden episode of pulseless electrical activity, and she received CPR for almost 2 minutes. As I was walking into the ICU, I was notified about the patient being coded. Ran into the room, intubated the patient, and within a minute, there was return of spontaneous circulation, and there was evidence of adequate blood pressure. Patient was placed on propofol, repeat ABG shortly after intubation showed a pO2 of 334 pCO2 of 74 pH of 7.27. Hence the patient was placed on FiO2 of 40%, tidal volume of 300, rate of 20, and PEEP of 5. Patient was kept on propofol at 30 mcg/kg/m, Precedex was discontinued, she required small dose of norepinephrine at 0.08 mcg/kg/m. Went ahead and placed a right femoral triple- lumen catheter and a right radial arterial line were both done. The admitting physician discussed her CODE STATUS with her and the CODE STATUS was changed shortly after to DO NOT RESUSCITATE and the patient is not to be resuscitated if she addressed again. Antibiotics moraels, patient is on Levaquin, she is also on Solu-Medrol, bronchodilators, and Lovenox. Progress note dated 01/04/2021. This is an 80-year-old female seen by my partner yesterday in consultation. She was admitted to the hospital on December 31 with a COPD exacerbation. Unfortunately, on January 03, she has a episode of pulseless electrical activity (PEA), and required intubation on January 03. CPR lasted about 5 minutes. The patient is currently on the volume assist control mode rate of 20 tidal volume at 300, FiO2 40%, and PEEP of 5. Arterial blood gases show a PaO2 of 83 pCO2 70 and pH is 7.34. The patient is a chronic CO2 retainer. Her baseline PaCO2 is right around 60 mmHg. She's currently on saline at 75 mL an hour, propofol at 40 mcg/kg/m, norepinephrine which is on hold, and without 2 feeds. They will be started today. The patient will have a daily interruption of sedation and a spontaneous breathing trial today. She is a DO NOT RESUSCITATE. The patient is currently on Levaquin. I was just notified by the nurses, the patient did not do well with her spontaneous breathing trial, and her respiratory rate went up to 40-50 breaths per minute, the rapid shallow breathing index was 194, tidal volume was less than 200 mL, saturations were 88%, the patient was very agitated with a blood pressure 160/60. White count 12.8, hemoglobin 10, hematocrit 33.7, and platelet count 181,000. Sodium 134, potassium 4.8, chlorides 98, CO2 35, BUN 14, creatinine 0.4. Chest x-ray showed patchy bibasilar infiltrates, right greater than left, suggesting the possibility of aspiration. Progress note dated 01/05/2021. 80-year-old female seen by my partner in consultation 2 days ago. She was admitted to the hospital on December 31 with a COPD exacerbation, but unfortunately, on January 03, she episode of pulseless electrical activity, which required intubation on January 03. CPR lasted about 5 minutes before there was return of spontaneous circulation. The patient remains on the ventilator. Vent settings include the volume assist control mode, rate of 20, tidal volume 300, FiO2 40%, and PEEP of 5. Arterial blood gases show pO2 of 83, CO2 73, and a pH is 7.34. The patient is receiving propofol at 50 mcg/kg/m, saline at 75 mL an hour, and vital AF at 36 mL an hour, which is goal. White count 9.3, hemoglobin 9.2, hematocrit 30.3, platelet count 136,000. Sodium 135, potassium 4.4, chlorides 98, CO2 39, BUN 17, and creatinine 0.48. Chest x-ray show some chronic changes with right greater than left basilar infiltrates and/or atelectasis. Progress note dated 01/06/2021. 80-year-old female, again seen in room 258, in the ICU. The patient was successfully extubated on January 05. She is a DO NOT RESUSCITATE patient. She's currently on 2 L nasal cannula. She's getting saline at 75 mL an hour. The arterial line in the femoral triple-lumen catheter can be discontinued. Hospice consultation has been placed. Currently laboratory data includes a white count 12.1, hemoglobin 10.2, hematocrit 34.4, and platelet count 157,000. Sodium 138, potassium 4.5, chlorides 98, CO2 40, BUN 17, and creatinine 0.34. A chest x-ray today, shows right basilar infiltrates. The patient is seen today 01/07/2021 in follow-up on the regular medical floor. She has no progress. She had some agonal respirations. Her family is at the bedside. She will be placed on comfort care. She had been maintaining O2 saturations in the mid 90s on 4 L/m per nasal cannula. Respiratory rate 12-14. Blood glucose 106. Objective - Vital Signs Vital signs: Vital Signs Temp 99.6 F 01/07/21 08:00 Pulse 96 01/07/21 08:00 Resp 14 01/07/21 08:00 BP 110/42 01/07/21 08:00 Pulse Ox 94 L 01/07/21 08:00 Intake & Output 01/06/21 01/07/21 01/07/21 18:59 06:59 18:59 Intake Total 546 Output Total 370 725 Balance 176 -725 Weight 60 kg 63.5 kg Intake: IV 546 0.45 450 Pressure bag 21 Sodium Chloride 0.9% 1, 75 000 ml @ 75 mls/hr IV . [id number] [facility] Rx#:[id number] Output: Urine 370 725 Other: Voiding Method Indwelling Catheter Indwelling Catheter ABP, PAP, CO, CI - Last Documented Arterial Blood Pressure 152/45 - Exam 80-year-old female patient. Now with agonal respirations, on 4 L nasal cannula, with saturations of 94%. HEENT examination is grossly unremarkable. Neck supple. Full range of motion. No adenopathy thyromegaly or neck vein distention. Cardiovascular examination reveals regular rhythm rate. S1-S2 normal. No S3 or S4. No discernible murmur noted. Heart sounds are distant. Lungs reveal coarse bilateral rhonchi and wheezes. No crackles. Breath sounds are equal bilaterally. Respiratory rate 12-14 Abdomen soft without bowel sounds. No masses or tenderness appreciated. Extremities are intact. No cyanosis clubbing or edema. Skin is without rash or lesion. Neurologic examination reveals a patient who is very lethargic and somnolent. - Labs CBC & Chem 7: 01/06/21 04:15 01/06/21 04:15 Labs: Abnormal Lab Results - Last 24 Hours (Table) 01/06/21 01/07/21 01/07/21 Range/Units 14:40 00:30 06:23 POC Glucose (mg/dL) 126 H 109 H 113 H (75-99) mg/dL 01/07/21 Range/Units 07:12 POC Glucose (mg/dL) 106 H (75-99) mg/dL Assessment and Plan Assessment: 1 Acute on chronic hypoxemic and hypercapnic respiratory failure, secondary to COPD exacerbation, with intubation on January 03, after 5 minutes of cardiopulmonary resuscitation and eventual return of spontaneous circulation, secondary to PEA. 2 Status post successful extubation on January 05. 3 Community-acquired pneumonia right lower lobe, versus aspiration. 4 History of benign essential hypertension. 5 History of colon cancer. 6 History of lung cancer. Plan: The patient was seen and evaluated by Dr. Amor The family has decided on comfort care and she has agonal respirations We'll sign off I, the cosigning physician, performed a history & physical examination of the patient. Lungs sounds with bilateral rhonchi and wheeze. Agonal respirations now. Maintaining good O2 saturations in the 90s on her liters per minute per nasal cannula I discussed the assessment and plan of care with my nurse practitioner, Norah Perdomo. I attest to the above note as dictated by her.
[2021-01-07 13:36] VITALS: BMI 24.0
--- NOTE | 2021-01-07 21:23 | P.DS ---
Providers Date of admission: 12/31/20 13:27 Attending physician: Cesilia Patel Consults: 01/02/21 14:50 Consult Physician Stat Consulting Provider: Shelby Monique Consult Reason/Comments: COPD, critical ABGs Do you want consulting provider notified?: Yes Primary care physician: Physician Nonstaff Hospital Course: Discharge Diagnosis: Pneumonia, probable aspiration and gram-negative Acute exacerbation of COPD Acute on chronic hypoxic hypercapnic respiratory failure Aborted sudden cardiac Rib pain secondary to CPR Transaminitis Dysphasia Weakness Hypovolemic hyponatremia, resolved Hypertension History of lung and colon cancer in remission Hospital Course: Patient is an 80 yo CF with COPD on Home O2 at 2L ATC, prior lung cancer, and gerd who presented with complaints of shortness of breath and confusion. On arrival to the ER vital signs within normal limits. Initial laboratory analysis showed a sodium of 122, AST 37, ALT 39, carbon dioxide 38, urinalysis was negative, COVID testing negative. Chest x-ray showed chronic changes with a small tiny right pleural effusion. She was started on IV fluids and her Lasix dose was discontinued. On 01/02 patient was much more lethargic. ABG was obtained which showed a CO2 greater than 120. She was started on Bipap due to hypoxia and severe hypercapnia. She became more agitated but did have an imrpovement in her hypercapina, despite this she became hypoxic on the morning of 01/03 and a code was called she was intubated. Patient extubated on 01/05/21. She was having episodes of confusion and hypoxemia after extubation. She was able to have swallow study. The patient stated she did not want to continue and wanted to go home. She continued to worsen on 01/06 in the options of hospice were discussed with her and they were considering it. In the morning of 01/07 she had agonal respirations my elected to sign-on with comfort measures. Patient peacefully on 01/07. Patient seen and examined at bedside. In the morning prior to myself calling and she was not arousable to sternal rub Vital signs reviewed and stable. General: [non toxic, mild distress. appears at stated age Derm: warm, dry Head: atraumatic, normocephalic, symmetric Eyes: EOMI, no lid lag, anicteric sclera Mouth: no lip lesion, mucus membranes moist Cardiovascular: S1S2 reg, no murmur, positive posterior tibial pulse bilateral, Lungs: Decreased breath sounds bilateral bilateral, no rhonchi, no rales , +6 muscle use, +'s agonal respirations Abdominal: soft, nontender to palpation, no guarding, no appreciable organomegaly Ext: no gross muscle atrophy, no edema, no contractures Neuro: + Gag intact, + twitching to pain Psych: Unarousable A total of 37 minutes of time were spent preparing this complex discharge summary . Plan - Discharge Summary Discharge Rx Participant: No New Discharge Prescriptions: No Action Ipratropium-Albuterol Nebulize [Duoneb 0.5 mg-3 mg/3 ml Soln] 3 ml INHALATION RT-Q6H PRN PRN Reason: Shortness Of Breath Fluticasone Nasal Churdan [Flonase Nasal Churdan] 1 spray EA NOSTRIL DAILY Celecoxib [CeleBREX] 200 mg PO DIRECTED Fluticasone/Umeclidin/Vilanter [Trelegy Ellipta 100-62.5-25] 1 puff INHALATION RT-DAILY Cholecalciferol [Vitamin D3 (25 Mcg = 1000 Iu)] 25 mcg PO DAILY Ascorbic Acid [Vitamin C] 500 mg PO DAILY Potassium 25meq 50 meq PO DAILY Magnesium 250 mg PO DAILY Denosumab [Prolia] 60 mg SQ Q180D Omeprazole 20 mg PO BID NIFEdipine [Procardia] 10 mg PO TID Albuterol Sulfate [Proair Hfa] 1 - 2 puff INHALATION RT-Q6H PRN PRN Reason: Shortness Of Breath Furosemide [Lasix] 20 mg PO DAILY PRN PRN Reason: Edema Doxycycline Hyclate [Vibramycin] 100 mg PO BID amLODIPine [Norvasc] 5 mg PO DAILY Super B Complex 1 tab PO DAILY Vit C/E/Zn/Coppr/Lutein/Zeaxan [Preservision Areds 2 Softgel] 1 cap PO BID Loratadine [Claritin] 10 mg PO DAILY PRN PRN Reason: Allergy Symptoms predniSONE See Taper PO DAILY Zinc 50 mg PO DAILY Discharge Medication List Albuterol Sulfate [Proair Hfa] 1 - 2 puff INHALATION RT-Q6H PRN 12/31/20 [History] Ascorbic Acid [Vitamin C] 500 mg PO DAILY 12/31/20 [History] Celecoxib [CeleBREX] 200 mg PO DIRECTED 12/31/20 [History] Cholecalciferol [Vitamin D3 (25 Mcg = 1000 Iu)] 25 mcg PO DAILY 12/31/20 [History] Denosumab [Prolia] 60 mg SQ Q180D 12/31/20 [History] Doxycycline Hyclate [Vibramycin] 100 mg PO BID 12/31/20 [History] Fluticasone Nasal Churdan [Flonase Nasal Churdan] 1 spray EA NOSTRIL DAILY 12/31/20 [History] Fluticasone/Umeclidin/Vilanter [Trelegy Ellipta 100-62.5-25] 1 puff INHALATION RT-DAILY 12/31/20 [History] Furosemide [Lasix] 20 mg PO DAILY PRN 12/31/20 [History] Ipratropium-Albuterol Nebulize [Duoneb 0.5 mg-3 mg/3 ml Soln] 3 ml INHALATION RT-Q6H PRN 12/31/20 [History] Loratadine [Claritin] 10 mg PO DAILY PRN 12/31/20 [History] Magnesium 250 mg PO DAILY 12/31/20 [History] NIFEdipine [Procardia] 10 mg PO TID 12/31/20 [History] Omeprazole 20 mg PO BID 12/31/20 [History] Potassium 25meq 50 meq PO DAILY 12/31/20 [History] Super B Complex 1 tab PO DAILY 12/31/20 [History] Vit C/E/Zn/Coppr/Lutein/Zeaxan [Preservision Areds 2 Softgel] 1 cap PO BID 12/31/20 [History] Zinc 50 mg PO DAILY 12/31/20 [History] amLODIPine [Norvasc] 5 mg PO DAILY 12/31/20 [History] predniSONE See Taper PO DAILY 12/31/20 [History] Follow up Appointment(s)/Referral(s): Nonstaff,Physician [Primary Care Provider] - 1-2 days Discharge Disposition: - Preliminary Cause of Preliminary Cause of : COPD
--- NOTE | 2021-01-11 15:11 | CDI ---
Documentation Clarification Form Date: 01/11/2021 02:38:03 PM From: Cassandra Buckley RN, CCDS Email: [email or web address] Admit Date: 12/31/2020 01:27:00 PM Patient Name: Stacey Moore Visit Number: [id number] Discharge Date: 01/07/2021 02:23:00 PM ATTENTION: The Clinical Documentation Specialists (CDI) and [facility] Coding Staff appreciate your assistance in clarifying documentation. Please respond to the clarification below the line at the bottom and electronically sign. The CDI & [facility] Coding staff will review the response and follow-up if needed. Please note: Queries are made part of the Legal Health Record. If you have any questions, please contact the author of this message via ITS. Dr. Cesilia Patel Your patient looked grossly volume depleted in the ED. She was s/p cardiac arrest on 01/03. Based on this information and the findings below, is there an additional diagnosis that is clinically appropriate for this patient? Patient history/risk factors: COPD, history of lung cancer and colon cancer in remission, and chronic hypoxic respiratory failure on home O2 presented to the emergency room with worsening shortness of breath and confusion. Clinical Indicators: 12/31 H&P: presented to the emergency room with some shortness of breath and confusion. Hypovolemic hyponatremia: Continue IV fluid hydration with normal saline at 75 mL per hour. 01/03 Pulmonary: Overnight the patient did extremely well, and follow-up ABG showed significant improvement in her pCO2 and good improvement in her pH. However early this morning the patient developed a sudden episode of pulseless electrical activity, and she received CPR for almost 2 minutes. Acute on chronic hypoxic and hypercapnic respiratory failure secondary to acute exacerbation of COPD. Acute community-acquired right lower lobe pneumonia is strongly suspected. Cardiac arrest/PEA requiring 2 minutes of CPR, one dose of epinephrine, intubation, mechanical ventilation, Patient was kept on propofol at 30 mcg/kg/m, Precedex was discontinued, she required small dose of norepinephrine at 0.08 mcg/kg/m." Treatment: Norepinephrine titrated from 01/03-01/05, mechanical ventilation, IVF bolus 01/03 along with 0.9 NS @75/hr. Required CPR. Is there an additional diagnosis that is clinically appropriate for this patient? [ ] Hypovolemic Shock [ ] Cardiogenic Shock [ ] Other, please specify [ X ] Unable to determine MTDD
== END 2021-01-07 14:23 | disposition expired | DRG 208 ==
LOC: EC 10:01 → 4SSUR 13:27 → 2SICU 01-02 20:12 → 4SSUR 01-06 21:48
PROVIDERS: ADMIT Internal Medicine; ATTEND Internal Medicine
PROC: 3E043XZ Introduction of Vasopressor into Central Vein, Percutaneous Approach (ICD-10-PCS; 2021-01-01)
PROC: 5A12012 Performance of Cardiac Output, Single, Manual (ICD-10-PCS; 2021-01-01)
PROC: 5A0935A Assistance with Respiratory Ventilation, Less than 24 Consecutive Hours, High Flow/Velocity Cannula (ICD-10-PCS; 2021-01-01)
PROC: 5A09357 Assistance with Respiratory Ventilation, Less than 24 Consecutive Hours, Continuous Positive Airway Pressure (ICD-10-PCS; 2021-01-02)
PROC: 5A1945Z Respiratory Ventilation, 24-96 Consecutive Hours (ICD-10-PCS; principal; 2021-01-03)
PROC: 0DH67UZ Insertion of Feeding Device into Stomach, Via Natural or Artificial Opening (ICD-10-PCS; 2021-01-03)
PROC: 3E0G76Z Introduction of Nutritional Substance into Upper GI, Via Natural or Artificial Opening (ICD-10-PCS; 2021-01-03)
PROC: 0D9670Z Drainage of Stomach with Drainage Device, Via Natural or Artificial Opening (ICD-10-PCS; 2021-01-03)
PROC: 06HM33Z Insertion of Infusion Device into Right Femoral Vein, Percutaneous Approach (ICD-10-PCS; 2021-01-03)
PROC: 4A133J1 Monitoring of Arterial Pulse, Peripheral, Percutaneous Approach (ICD-10-PCS; 2021-01-03)
PROC: 4A133B1 Monitoring of Arterial Pressure, Peripheral, Percutaneous Approach (ICD-10-PCS; 2021-01-03)
PROC: 03HY32Z Insertion of Monitoring Device into Upper Artery, Percutaneous Approach (ICD-10-PCS; 2021-01-03)
PROC: 0BH17EZ Insertion of Endotracheal Airway into Trachea, Via Natural or Artificial Opening (ICD-10-PCS; 2021-01-03)
DX: J43.9 Emphysema, unspecified (principal); J15.6 Pneumonia due to other Gram-negative bacteria; J96.22 Acute and chronic respiratory failure with hypercapnia; J96.21 Acute and chronic respiratory failure with hypoxia; G93.41 Metabolic encephalopathy; J69.0 Pneumonitis due to inhalation of food and vomit; K92.2 Gastrointestinal hemorrhage, unspecified; E87.1 Hypo-osmolality and hyponatremia; E87.2 Acidosis; R45.1 Restlessness and agitation; R74.01 Elevation of levels of liver transaminase levels; R07.81 Pleurodynia; E86.1 Hypovolemia; Z20.822 Contact with and (suspected) exposure to COVID-19; Z51.5 Encounter for palliative care; Z66 Do not resuscitate; I10 Essential (primary) hypertension; I27.20 Pulmonary hypertension, unspecified; Z99.81 Dependence on supplemental oxygen; I46.8 Cardiac arrest due to other underlying condition; Z85.038 Personal history of other malignant neoplasm of large intestine; Z85.118 Personal history of other malignant neoplasm of bronchus and lung; R47.02 Dysphasia; R00.0 Tachycardia, unspecified; R60.0 Localized edema; K21.9 Gastro-esophageal reflux disease without esophagitis; R13.10 Dysphagia, unspecified; Z79.899 Other long term (current) drug therapy; Z71.3 Dietary counseling and surveillance; Z90.49 Acquired absence of other specified parts of digestive tract
CPT/HCPCS: 36415; 36600; 70450; 71045; 71046; 80048; 80053; 81003; 82805; 83605; 83735; 83880; 83930; 83935; 84100; 84145; 84484; 85025; 85610; 85730; 87070; 87205; 87635; 93005; 93306; 94002; 94003; 94640; 94660; 94760; 99285